=== PATIENT | female | born 1945 | race Caucasian/White ===

== ENCOUNTER 2017-07-11 08:42 | Observation (INO) | payer OTHER, MEDICARE ==
[2017-07-11 08:51] VITALS: BMI 32.6
[2017-07-11] MEDS ORDERED: ACETAMINOPHEN 1000 MG/100 ML VIAL (NON FORMULARY) IVPB ONE (09:36)
[2017-07-11] MEDS ORDERED: SODIUM CHLORIDE 0.9% 1000 ML INFUS.BAG IV ONE (09:36)
--- NOTE | 2017-07-11 09:36 | PDOC ---
History of Present Illness - General Chief Complaint: Pain, Acute Stated Complaint: PAIN Time Seen by Provider: 07/11/17 09:35 - History of Present Illness Initial Comments: 07/11/17 09:45 Ms. Herman is a 72 yo female w/ pmh of HTN, HLD, prolapsed uterus with hysterectomy, prior CVA with residual right hand numbness, and varicose veins with insufficiency who presents c/o a 1 day history of LLQ abdominal pain radiating to her back. She further endorses she has the urge to go more frequently /urgently currently and that she had a large bowel movement this morning (although stool was normal). The patient denies chest pain, shortness of breath, headache and dizziness. Denies fever, chills, nausea, vomit, diarrhea and constipation. Denies dysuria, and hematuria. Allergies: Penicillins, cirpofloxacin Past History - Past Medical History Allergies/Adverse Reactions: Allergies Allergy/AdvReac Type Severity Reaction Status Date / Time Penicillins Allergy Unknown Verified 07/11/17 08:47 ciprofloxacin [From Cipro] Allergy Rash Verified 07/11/17 08:47 ciprofloxacin HCl Allergy Rash Verified 07/11/17 08:47 [From Cipro] soy AdvReac diarrhea Verified 07/11/17 08:47 shrimp Allergy Difficulty Uncoded 07/11/17 08:47 Breathing Home Medications: Ambulatory Orders Amlodipine Besylate [Norvasc -] 5 mg PO DAILY 09/22/14 Aspirin [ASA -] 81 mg PO DAILY 09/22/14 Atorvastatin Ca [Lipitor] 10 mg PO HS 09/22/14 Cholecalciferol (Vitamin D3) [Vitamin D] 1,000 unit PO DAILY 09/22/14 Acetaminophen [Tylenol .Regular Strength -] 650 mg PO Q6H PRN #0 tablet CVA: Yes (11/2013 W/ RT SIDE WEAKNESS.) COPD: No DVT: No Dementia: No HTN: Yes - Surgical History Abdominal Surgery: Yes - Immunization History Immunization Up to Date: Yes - Suicide/Smoking/Psychosocial Hx Smoking Status: Yes Smoking History: Never smoked Have you smoked in the past 12 months: Yes Number of Cigarettes Smoked Daily: 0 If you are a former smoker, when did you quit?: 11/27/2013 Information on smoking cessation initiated: No 'Breaking Loose' booklet given: 11/27/13 Hx Alcohol Use: No Drug/Substance Use Hx: No Substance Use Type: None Hx Substance Use Treatment: No *Physical Exam - Vital Signs Last Vital Signs Temp Pulse Resp BP Pulse Ox 97.8 F 87 16 144/82 95 07/11/17 08:47 07/11/17 08:47 07/11/17 08:47 07/11/17 08:47 07/11/17 08:47 ED Treatment Course - LABORATORY CBC & Chemistry Diagram: 07/11/17 10:20 07/11/17 10:20 Medical Decision Making - Medical Decision Making 07/11/17 14:23 Ms. Herman is a 72 yo female w/ pmh as described who presents for evaluation of LLQ pain x1 day concerning for colitis vs. renal stone. 07/11/17 14:24 CT Abdomen/pelvis significant for diverticulosis coli mainly in sigmoid colon w / suggestion of chronic thickening of wall w/out gross evidence of acute diverticulitis. Also mild left renal hydronephrosis and hydroureter with layering of urinary bladder suggestive of recent passage of stone. 07/11/17 14:37 Discussed patient with inpatient team who will admit for further evaluation. Urology also contacted for inpatient evaluation for possible infected stone not visible on CT. *DC/Admit/Observation/Transfer Diagnosis at time of Disposition: Nephrolithiasis UTI (urinary tract infection) Qualifiers: Urinary tract infection type: site unspecified Hematuria presence: with hematuria Qualified Code(s): N39.0 - Urinary tract infection, site not specified - Discharge Dispostion Decision to Admit order: Yes - Referrals - Patient Instructions - Post Discharge Activity
[2017-07-11] MEDS ORDERED: ACETAMINOPHEN INJECTION 100 ML IVPB ONE (09:42)
[2017-07-11 10:34] LABS: BASO % 0.5 % (0-2.0); EOS % 0.2 % (0-4.5); HEMATOCRIT 41.7 % (32.4-45.2); HEMOGLOBIN 13.5 GM/dL (10.7-15.3); LYMPH % 10.1 % (8-40); MCH 25.6 pg (25.7-33.7); MCHC 32.3 g/dl (32.0-36.0); MEAN CELL VOLUME 79.1 fl (80-96); MEAN PLT VOLUME 8.5 fl (7.5-11.1); MONO % 3.2 % (3.8-10.2); PLATELET COUNT 289 K/MM3 (134-434); RBC 5.27 M/mm3 (3.60-5.2); RDW 17.1 % (11.6-15.6); WHITE BLOOD COUNT 10.3 K/mm3 (4.0-10.0)
[2017-07-11 10:37] LABS: URINE APPEARANCE SLCLOUDY; URINE BILIRUBIN NEGATIVE (<2.0 mg/dL); URINE COLOR LTYELLOW; URINE GLUCOSE (UA) NEGATIVE (NEGATIVE); URINE KETONE 1+ (NEGATIVE); URINE NITRITE NEGATIVE (NEGATIVE); URINE UROBILINOGEN NEGATIVE mg/dL (0.2-1.0)
[2017-07-11 10:44] LABS: URINE LEUK ESTERASE 2+ (NEGATIVE); URINE PROTEIN 1+ (NEGATIVE)
[2017-07-11 10:47] LABS: EPI CELLS RARE /HPF (FEW); URINE MUCUS RARE
[2017-07-11 10:59] LABS: ALBUMIN 3.9 g/dl (3.4-5.0); ALK PHOS 133 U/L (45-117); ANION GAP 10 (8-16); BILIRUBIN,TOTAL 0.5 mg/dL (0.2-1.0); BLOOD UREA NITROGEN 20 mg/dL (7-18); CHLORIDE 104 mmol/L (98-107); CO2 27 mmol/L (21-32); CREATININE 0.9 mg/dL (0.55-1.02); GLUCOSE,RANDOM 154 mg/dL (74-106); POTASSIUM 3.9 mmol/L (3.5-5.1); SGOT/AST 26 U/L (15-37); SGPT/ALT 29 U/L (12-78); SODIUM 141 mmol/L (136-145); TOT PROT 8.1 g/dl (6.4-8.2)
--- NOTE | 2017-07-11 11:29 | PDOC ---
Attending Attestation - HPI HPI: 07/11/17 11:30 The patient is a 72 year old female with a significant PMH of CVA (with residual right sided weakness), HTN, hyperlipidemia, prolapsed uterus (s/p hysterectomy), and varicose veins who presents to the emergency department with LLQ abdominal pain with radiation to the back beginning approximately 1 day ago. The patient also notes increased urinary urgency and frequency today. The patient denies fevers or chills. She denies nausea, vomiting, or diarrhea. She denies chest pain or shortness of breath. Allergies: Penicillins, Ciprofloxacin, Ciprofloxacin HCl. PCP: Dr. Mary Steinberg - Physicial Exam PE: 07/11/17 11:30 Vitals: Triage Vital signs reviewed General Appearance: no acute distress, well nourished well developed, Neck: Supple;No Nuchal rigidity Chest Wall: Nontender Cardiac: Regular rate and rhythm, no murmurs, no rubs, no gallops, Lungs: Clear to auscultation bilateral, good air movement bilaterally, Abdomen: (+) Left sided abdominal tenderness. Soft, nondistended, normal bowel sounds. Back: (+) Left flank tenderness. Extremities: Full range of motion to all extremities, no cyanosis, clubbing, or edema Skin: Warm and dry, no rashes or lesions, no petechiae Psych: normal mood, normal affect - Medical Decision Making 07/11/17 11:30 The patient is a 72 year old female with a significant PMH of CVA (with residual right sided weakness), HTN, hyperlipidemia, prolapsed uterus (s/p hysterectomy), and varicose veins who presents to the emergency department with LLQ abdominal pain with radiation to the back beginning approximately 1 day ago. The patient also notes increased urinary urgency and frequency today. The patient denies fevers or chills. She denies nausea, vomiting, or diarrhea. She denies chest pain or shortness of breath. Allergies: Penicillins, Ciprofloxacin, Ciprofloxacin HCl. PCP: Dr. Mary Steinberg <Scar Morrissey - Last Filed: 07/11/17 11:30> - Resident Resident Name: Joo Fierro - ED Attending Attestation I have performed the following: I have examined & evaluated the patient, The case was reviewed & discussed with the resident, I agree w/resident's findings & plan, Exceptions are as noted - Medical Decision Making Differential diagnosis includes Pyelo, renal colic, less likely aneurysm or dissection We'll check labs hydrate pain medication CT with IV contrast observe and reassess and dispel. 07/11/17 14:26 CT scan demonstrates hydro-hydroureter and possible recently passed stone. Given elevated white blood cell count and urinalysis with evidence of infection patient started on aztreonam given multiple ALLERGIES urology has been consult. We'll admit to medicine for further management. Urology consultation. Most likely diagnosis is UTI in the setting of a recent stone no acute surgical intervention necessary at this time given evidence of passed stone and no evidence of active obstructing stone on CAT scan however we'll have urology follow in case of nonvisualized stone on CT. <Rohan Villela - Last Filed: 07/11/17 14:28> Heart Score/ECG Review - ECG Impressions Comment:: 07/11/17 14:22 EKG performed at 12:30. EKG demonstrates sinus rhythm [address] elevations, T-wave inversions in lead 3. ID 182, QRS 80, QTC 469 <Rohan Villela - Last Filed: 07/11/17 14:28>
[2017-07-11] MEDS ORDERED: AZTREONAM 2 GM in DEXTROSE 5%-WATER 100 ML IVPB ONE (13:09)
--- NOTE | 2017-07-11 14:39 | HP ---
Admitting History and Physical - Primary Care Physician PCP: Mary Steinberg S - Admission Chief Complaint: L flank pain History of Present Illness: The patient is a 72 year old female with a significant PMH of CVA (with mild residual right sided weakness), HTN, hyperlipidemia, prolapsed uterus (s/p hysterectomy), and varicose veins who presents to the emergency department with LLQ abdominal pain with radiation to the back beginning approximately 1 day prior to presentation. The patient also notes increased urinary urgency and frequency today. The patient denies fevers or chills. She denies nausea, vomiting, or diarrhea. She denies chest pain or shortness of breath. Allergies: Penicillins, Ciprofloxacin, Ciprofloxacin HCl. 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 Cardiovascular: Yes: HTN, Hyperlipdemia Gastrointestinal: Yes: Other (rectal bleed) Renal/: Yes: UTI Musculoskeletal: Yes: Osteoarthritis Dermatology: Yes: Other (bug bites) - Smoking History Smoking history: Never smoked Have you smoked in the past 12 months: Yes Aproximately how many cigarettes per day: 0 If you are a former smoker, when did you quit?: 11/27/2013 - Alcohol/Substance Use Hx Alcohol Use: No History of Substance Use: reports: None - Social History Usual Living Arrangement: Yes: Other (with niece) ADL: Independent History of Recent Travel: Yes (to [place]) Home Medications - Allergies Allergies/Adverse Reactions: Allergies Allergy/AdvReac Type Severity Reaction Status Date / Time Penicillins Allergy Unknown Verified 07/11/17 08:47 ciprofloxacin [From Cipro] Allergy Rash Verified 07/11/17 08:47 ciprofloxacin HCl Allergy Rash Verified 07/11/17 08:47 [From Cipro] soy AdvReac diarrhea Verified 07/11/17 08:47 shrimp Allergy Difficulty Uncoded 07/11/17 08:47 Breathing - Home Medications Home Medications: Ambulatory Orders Amlodipine Besylate [Norvasc -] 5 mg PO DAILY 09/22/14 Aspirin [ASA -] 81 mg PO DAILY 09/22/14 Atorvastatin Ca [Lipitor] 10 mg PO HS 09/22/14 Cholecalciferol (Vitamin D3) [Vitamin D] 1,000 unit PO DAILY 09/22/14 Acetaminophen [Tylenol .Regular Strength -] 650 mg PO Q6H PRN #0 tablet Nitrofurantoin Macrocrystal [Macrodantin -] 50 mg PO Q6HPO #20 capsule 07/12/17 Family Disease History - Family Disease History Family History: Unremarkable Review of Systems - Review of Systems Constitutional: denies: Chills, Fever Eyes: denies: Blind Spots, Blurred Vision, Double Vision HENT: denies: Difficult Swallowing, Epistaxis Neck: denies: Stiffness, Tenderness Cardiovascular: denies: Chest Pain, Shortness of Breath Respiratory: denies: Cough, SOB Gastrointestinal: denies: Abdominal Pain, Diarrhea, Vomiting Genitourinary: reports: Dysuria, Flank Pain, Frequency Musculoskeletal: denies: Back Pain, Joint Swelling Neurological: denies: Change in LOC, Change in Speech, Confusion, Dizziness Endocrine: denies: Excessive Sweating, Flushing Hematology/Lymphatic: denies: Easily Bruised, Excessive Bleeding Psychiatric: denies: Altered Sleep Pattern, Anxiety, Depression Physical Examination Vital Signs: Vital Signs Temperature 97.8 F 07/11/17 08:47 Pulse Rate 98 H 07/11/17 13:45 Respiratory Rate 22 07/11/17 13:45 Blood Pressure 153/86 07/11/17 13:45 O2 Sat by Pulse Oximetry (%) 98 07/11/17 13:45 Constitutional: Yes: No Distress, Calm Eyes: Yes: Conjunctiva Clear HENT: Yes: Atraumatic Neck: Yes: Supple Cardiovascular: Yes: Regular Rate and Rhythm Respiratory: Yes: CTA Bilaterally Gastrointestinal: Yes: Soft. No: Distention, Tenderness Renal/: No: CVA Tenderness - Left, CVA Tenderness - Right Musculoskeletal: No: Joint Stiffness, Joint Swelling Extremities: No: Cold, Cool, Cyanosis Edema: No Integumentary: No: Rash, Venous Stasis Changes Neurological: Yes: WNL, Alert, Oriented ...Motor Strength: WNL Psychiatric: Yes: WNL, Alert, Oriented. No: Agitated, Suicidal Ideation Labs: CBC, BMP 07/11/17 10:20 07/11/17 10:20 Imaging - Results Chest X-ray: Report Reviewed Cat Scan: Report Reviewed Other: Report Reviewed Assessment/Plan The patient is a 72 year old female with a significant PMH of CVA (with residual right sided weakness), HTN, hyperlipidemia, prolapsed uterus (s/p hysterectomy), and varicose veins who presents to the emergency department with LLQ abdominal pain with radiation to the back dysuria, noted to have UTI and mild L hydronephrosis Allergies: Penicillins, Ciprofloxacin, Ciprofloxacin HCl. place in OBS eval IVF IV ATB possible DC home in am if better, will need f/u with d.w pt and lizzie
[2017-07-11] MEDS ORDERED: ACETAMINOPHEN 325 MG TABLET (FP) PO PRN (15:04)
--- NOTE | 2017-07-11 15:39 | CON.GU ---
Consult - History of Present Illness History of Present Illness: 72 yo female admitted with LLQ pain/colic. NCCT shows recently passed 2 mm stone in bladder and mild left hydro. 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 Cardio/Vascular: Yes: HTN, Hyperlipdemia Gastrointestinal: Yes: Other (rectal bleed) Renal/: Yes: UTI Musculoskeletal: Yes: Osteoarthritis Dermatology: Yes: Other (bug bites) - Alcohol/Substance Use Hx Alcohol Use: No History of Substance Use: reports: None - Smoking History Smoking history: Never smoked Have you smoked in the past 12 months: Yes Aproximately how many cigarettes per day: 0 If you are a former smoker, when did you quit?: 11/27/2013 - Social History ADL: Independent History of Recent Travel: Yes (to [place]) Home Medications - Allergies Allergies/Adverse Reactions: Allergies Allergy/AdvReac Type Severity Reaction Status Date / Time Penicillins Allergy Unknown Verified 07/11/17 08:47 ciprofloxacin [From Cipro] Allergy Rash Verified 07/11/17 08:47 ciprofloxacin HCl Allergy Rash Verified 07/11/17 08:47 [From Cipro] soy AdvReac diarrhea Verified 07/11/17 08:47 shrimp Allergy Difficulty Uncoded 07/11/17 08:47 Breathing - Home Medications Home Medications: Ambulatory Orders Amlodipine Besylate [Norvasc -] 5 mg PO DAILY 09/22/14 Aspirin [ASA -] 81 mg PO DAILY 09/22/14 Atorvastatin Ca [Lipitor] 10 mg PO HS 09/22/14 Cholecalciferol (Vitamin D3) [Vitamin D] 1,000 unit PO DAILY 09/22/14 Acetaminophen [Tylenol .Regular Strength -] 650 mg PO Q6H PRN #0 tablet Review of Systems - Review of Systems Genitourinary: reports: Frequency Physical Exam- Vital Signs: Vital Signs Temperature 97.8 F 07/11/17 08:47 Pulse Rate 98 H 07/11/17 13:45 Respiratory Rate 22 07/11/17 13:45 Blood Pressure 153/86 07/11/17 13:45 O2 Sat by Pulse Oximetry (%) 98 07/11/17 15:17 Renal/: Yes: WNL Kidneys: Yes: WNL Labs: CBC, BMP 07/11/17 10:20 07/11/17 10:20 Imaging - Results Cat Scan: Image Reviewed Problem List - Problems (1) Nephrolithiasis Assessment/Plan: recently passed left ureteral stone. in light of elevated WBC agree with ibservation and antibiotics. May d/c home tomorrow if WBC normalizes and pain free Code(s): N20.0 - CALCULUS OF KIDNEY
--- NOTE | 2017-07-11 17:33 | EKG ---
Test Reason : Blood Pressure : / mmHG Vent. Rate : 095 BPM Atrial Rate : 095 BPM P-R Int : 182 ms QRS Dur : 080 ms QT Int : 374 ms P-R-T Axes : 010 -07 -02 degrees QTc Int : 469 ms NORMAL SINUS RHYTHM CANNOT RULE OUT ANTERIOR INFARCT , AGE UNDETERMINED ABNORMAL ECG WHEN COMPARED WITH ECG OF 07-NOV-2014 02:38, NONSPECIFIC T WAVE ABNORMALITY, WORSE IN ANTERIOR LEADS Confirmed by LAITH CREWS, KEMAR ([id number]) on 07/11/2017 5:32:47 PM Referred By: Confirmed By:KEMAR OZUNA MD
[2017-07-11] MEDS: amLODIPine BESYLATE 5 MG TABLET (FP) PO SCH (18:16)
[2017-07-11] MEDS: NITROFURANTOIN MACROCRYSTAL 50 MG CAPSULE (FP) PO SCH ×2 (18:16→23:59)
[2017-07-11] MEDS ORDERED: SULFAMETHOXAZOLE/TRIMETHOPRIM 800MG/160MG D.S. TABLET PO SCH (22:00)
[2017-07-11] MEDS ORDERED: ATORVASTATIN CA 10 MG TABLET (FP) PO SCH (22:00)
[2017-07-11] MEDS: HEPARIN NA (PORCINE) 5,000 UNITS/ML 1ML VIAL SQ SCH (22:11)
[2017-07-12] MEDS: NITROFURANTOIN MACROCRYSTAL 50 MG CAPSULE (FP) PO SCH ×2 (06:26→12:17)
[2017-07-12 07:21] LABS: EOS % 1.3 % (0-4.5); HEMATOCRIT 39.4 % (32.4-45.2); HEMOGLOBIN 12.9 GM/dL (10.7-15.3); MCH 25.6 pg (25.7-33.7); MCHC 32.8 g/dl (32.0-36.0); MEAN CELL VOLUME 78.1 fl (80-96); MEAN PLT VOLUME 8.1 fl (7.5-11.1); MONO % 8.2 % (3.8-10.2); NEUT % 70.5 % (42.8-82.8); PLATELET COUNT 281 K/MM3 (134-434); RBC 5.05 M/mm3 (3.60-5.2); RDW 16.8 % (11.6-15.6); WHITE BLOOD COUNT 7.1 K/mm3 (4.0-10.0)
[2017-07-12 08:10] LABS: ALBUMIN 3.6 g/dl (3.4-5.0); ANION GAP 8 (8-16); BILIRUBIN,TOTAL 0.7 mg/dL (0.2-1.0); BLOOD UREA NITROGEN 11 mg/dL (7-18); CALCIUM 8.5 mg/dL (8.5-10.1); CHLORIDE 106 mmol/L (98-107); CO2 26 mmol/L (21-32); CREATININE 0.7 mg/dL (0.55-1.02); GLUCOSE,RANDOM 104 mg/dL (74-106); POTASSIUM 3.8 mmol/L (3.5-5.1); SGOT/AST 24 U/L (15-37); SGPT/ALT 26 U/L (12-78); SODIUM 140 mmol/L (136-145); TOT PROT 7.5 g/dl (6.4-8.2)
[2017-07-12 08:11] LABS: ALK PHOS 121 U/L (45-117)
[2017-07-12 08:58] VITALS: BP 126/72; PULSE 98; TEMP 98.9
[2017-07-12] MEDS ORDERED: ASPIRIN 81 MG CHEWABLE TABLETS PO SCH (10:00)
[2017-07-12] MEDS ORDERED: CHOLECALCIFEROL (VITAMIN D3) 1,000 UNIT TABLET (FP) PO SCH (10:00)
[2017-07-12] MEDS: amLODIPine BESYLATE 5 MG TABLET (FP) PO SCH (10:13)
[2017-07-12] MEDS: HEPARIN NA (PORCINE) 5,000 UNITS/ML 1ML VIAL SQ SCH (10:13)
--- NOTE | 2017-07-12 11:03 | PN ---
Progress Note (short form) - Note Progress Note: feels better no more flank pain hasnt seen stone pass but didnt always strain urine Ucx prelim positive stable from [facility] Problem List - Problems (1) Nephrolithiasis Code(s): N20.0 - CALCULUS OF KIDNEY
--- NOTE | 2017-07-12 11:55 | DS ---
Physical Examination Vital Signs: Vital Signs Temperature 98.9 F 07/12/17 08:57 Pulse Rate 98 H 07/12/17 08:57 Respiratory Rate 20 07/12/17 08:57 Blood Pressure 126/72 07/12/17 08:57 O2 Sat by Pulse Oximetry (%) 97 07/12/17 07:00 Findings/Remarks: in bed VSS afebrile NAD no c/o no pain no dysuria, said she is also allergic to Sulfa (not noted in above allergies initially) so Bactrim (initially ordered yesterday) was changed yesterday to NTF (Bactrim not given to pt) no dysuria no c/o feels well wants to go home; f/u as advised script done Constitutional: Yes: No Distress, Calm Eyes: Yes: Conjunctiva Clear HENT: Yes: Atraumatic Neck: Yes: Supple Cardiovascular: Yes: Regular Rate and Rhythm Respiratory: Yes: CTA Bilaterally Gastrointestinal: Yes: Soft. No: Distention, Tenderness Renal/: No: CVA Tenderness - Left, CVA Tenderness - Right, Hematuria Musculoskeletal: No: Joint Stiffness, Joint Swelling Extremities: No: Cold, Cool, Cyanosis Edema: No Integumentary: No: Rash, Venous Stasis Changes Neurological: Yes: WNL, Alert, Oriented ...Motor Strength: WNL Psychiatric: Yes: WNL, Alert, Oriented. No: Agitated, Suicidal Ideation Labs: CBC, BMP 07/12/17 06:40 07/12/17 06:40 Discharge Summary Reason For Visit: UTI, CALCULUS KIDNEY Current Active Problems Nephrolithiasis (Acute) Urinary tract infection (Acute) Procedures: Principal: admitted with UTI and flank pain, seen by dr Viveros Other Procedures: IVF IV ATB, pain meds; no intervention needed at this point ;. improved with above. Hospital Course: DC home on po ATB, f/u with and PCP in 1-2 weeks; see DC instructions d/w pt. Condition: Improved - Instructions Diet, Activity, Other Instructions: f/u PCP and in 1-2 weeks RTER if recurrent c/o Referrals: Mary Steinberg [Primary Care Provider] - Mert Llamas MD., MD [Staff Physician] - Disposition: HOME - Home Medications Comprehensive Discharge Medication List: Ambulatory Orders Amlodipine Besylate [Norvasc -] 5 mg PO DAILY 09/22/14 Aspirin [ASA -] 81 mg PO DAILY 09/22/14 Atorvastatin Ca [Lipitor] 10 mg PO HS 09/22/14 Cholecalciferol (Vitamin D3) [Vitamin D] 1,000 unit PO DAILY 09/22/14 Acetaminophen [Tylenol .Regular Strength -] 650 mg PO Q6H PRN #0 tablet
[2017-07-12] MEDS ORDERED: PT OWN MED DRAWER 7, Y5N ONE (12:16)
== END 2017-07-12 15:30 | disposition home or self-care (01) ==
LOC: JER 08:42 → JERBED 14:40 → J6S 17:17
PROVIDERS: ADMIT Internal Medicine; ATTEND Internal Medicine
PROC: 3E03329 Introduction of Other Anti-infective into Peripheral Vein, Percutaneous Approach (ICD-10-PCS; principal; 2017-07-11)
PROC: 3E033NZ Introduction of Analgesics, Hypnotics, Sedatives into Peripheral Vein, Percutaneous Approach (ICD-10-PCS; 2017-07-11)
PROC: 3E0337Z Introduction of Electrolytic and Water Balance Substance into Peripheral Vein, Percutaneous Approach (ICD-10-PCS; 2017-07-11)
PROC: 3E013GC Introduction of Other Therapeutic Substance into Subcutaneous Tissue, Percutaneous Approach (ICD-10-PCS; 2017-07-11)
DX: N20.0 Calculus of kidney (principal); N39.0 Urinary tract infection, site not specified; I10 Essential (primary) hypertension; E78.5 Hyperlipidemia, unspecified; I69.398 Other sequelae of cerebral infarction; I86.8 Varicose veins of other specified sites; Z79.82 Long term (current) use of aspirin; Z90.710 Acquired absence of both cervix and uterus; Z88.0 Allergy status to penicillin; Z88.1 Allergy status to other antibiotic agents; Z91.013 Allergy to seafood
CPT/HCPCS: 36415; 74177-TC; 80053; 81003; 81015; 85025; 87086; 87186; 93005; 93010; 96365; 96372; 96375; 99285-25; G0378; J0131; J1644; J7030

== ENCOUNTER 2019-11-27 18:19 | Inpatient (IN) | payer OTHER, MEDICARE ==
[2019-11-27 18:35] VITALS: BMI 31.9
--- OUTSIDE RECORDS SUMMARY | 2019-11-27 18:53 | XMS ---
:1945 Author Organization [facility] Support Name Relationship Address Phone RE Unavailable Unavailable Unavailable SAUMYA HERNANDEZ [address] [facility] [phone] [address] [place] [address] Re-disclosure Warning The records that you are about to access may contain information from federally- assisted alcohol or drug abuse programs. If such information is present, then the following federally mandated warning applies: This information has been disclosed to you from records protected by federal confidentiality rules (42 CFR part 2). The federal rules prohibit you from making any further disclosure of this information unless further disclosure is expressly permitted by the written consent of the person to whom it pertains or as otherwise permitted by 42 CFR part 2. A general authorization for the release of medical or other information is NOT sufficient for this purpose. The Federal rules restrict any use of the information to criminally investigate or prosecute any alcohol or drug abuse patient.The records that you are about to access may contain highly sensitive health information, the redisclosure of which is protected by Article 27-F of the [facility] Public Health law. If you continue you may haveaccess to information: Regarding HIV / AIDS; Provided by facilities licensed or operated by the [facility] Office of Mental Health; or Provided by the [facility] Office for People With Developmental Disabilities. If such information is present, then the following [facility] mandated warning applies: This information has been disclosed to you from confidential records which are protected by state law. State law prohibits you from making any further disclosure of this information without the specific written consent of the person to whom it pertains, or as otherwise permitted by law. Any unauthorized further disclosure in violation of state law may result in a fine or longterm sentence or both. A general authorization for the release of medical or other information is NOT sufficient authorization for further disclosure. Insurance Providers Payer name Policy type Policy ID Covered Covered green party's Policy P svitlana / Coverage green party ID relationship to [place] [facility] type herron [facility] [id number] [employer] MED[employer] [id number]
[2019-11-27] MEDS ORDERED: ONDANSETRON 4 MG/2 ML VIAL IVPUSH ONE (19:46)
[2019-11-27] MEDS ORDERED: KETOROLAC TROMETHAMINE 15 MG/ML VIAL IVPUSH ONE (19:46)
--- NOTE | 2019-11-27 19:48 | PDOC ---
Documentation entered by Jeremias Colmenares SCRIBE, acting as scribe for Bronwyn Urbano MD. Bronwyn Urbano MD: This documentation has been prepared by the scribe, Jeremias Phillips SCRIBE, under my direction and personally reviewed by me in its entirety. I confirm that the documentation accurately reflects all work, treatment, procedures, and medical decision making performed by me. Attending Attestation - Resident Resident Name: AllankushAnila - ED Attending Attestation I have performed the following: I have examined & evaluated the patient, The case was reviewed & discussed with the resident, I agree w/resident's findings & plan, Exceptions are as noted - HPI HPI: 11/27/19 19:45 This 74 yo female has a history of kidney stones and sees Dr Fay,her urologist for these problems - Physicial Exam PE: 11/27/19 19:39 GENERAL: Well developed, well nourished. Awake and alert. No acute distress. HEENT: Normocephalic, atraumatic. PERRLA, EOMI. No conjunctival pallor. Sclera are non- icteric. Moist mucous membranes. Oropharynx is clear. NECK: Supple. Full ROM. No JVD. Carotid pulses 2+ and symmetric, without bruits. No thyromegaly. No lymphadenopathy. CARDIOVASCULAR: Regular rate and rhythm. No murmurs, rubs, or gallops. Distal pulses are 2+ and symmetric. PULMONARY: No evidence of respiratory distress. Lungs clear to auscultation bilaterally. No wheezing, rales or rhonchi. ABDOMINAL: Soft. Non-tender. Non-distended. No rebound or guarding. No organomegaly. Normoactive bowel sounds. MUSCULOSKELETAL: Normal range of motion at all joints. No bony deformities or tenderness. Left CVA tenderness. EXTREMITIES: No cyanosis. No clubbing. No edema. No calf tenderness. SKIN: Warm and dry. Normal capillary refill. No rashes. No jaundice. NEUROLOGICAL: Alert, awake, appropriate. No gross focal neuro deficits PSYCHIATRIC: Cooperative. Good eye contact. Appropriate mood and affect. 11/27/19 19:46 - Medical Decision Making 11/28/19 00:25 ct scan shows an 5.3 mm obstructing renal stone with hydronephrosis pt will be admitted /urology consult Discharge - Discharge Information Problems reviewed: Yes Clinical Impression/Diagnosis: Urinary tract infection, Nephrolithiasis Condition: Stable - Follow up/Referral - Patient Discharge Instructions - Post Discharge Activity
--- NOTE | 2019-11-27 19:50 | PDOC ---
History of Present Illness - General Chief Complaint: Pain Stated Complaint: ABDOMINAL PAIN Time Seen by Provider: 11/27/19 19:38 Past History - Medical History Allergies/Adverse Reactions: Allergies Allergy/AdvReac Type Severity Reaction Status Date / Time Penicillins Allergy Unknown Verified 11/27/19 18:35 ciprofloxacin [From Cipro] Allergy Rash Verified 11/27/19 18:35 ciprofloxacin HCl Allergy Rash Verified 11/27/19 18:35 [From Cipro] lettuce Allergy Verified 11/27/19 19:46 soy AdvReac diarrhea Verified 11/27/19 18:35 shrimp Allergy Difficulty Uncoded 11/27/19 18:35 Breathing Home Medications: Ambulatory Orders Amlodipine Besylate [Norvasc -] 5 mg PO DAILY 09/22/14 Aspirin [ASA -] 81 mg PO DAILY 09/22/14 Atorvastatin Ca [Lipitor] 10 mg PO HS 09/22/14 Cholecalciferol (Vitamin D3) [Vitamin D] 1,000 unit PO DAILY 09/22/14 CVA: Yes (11/2013 W/ RT SIDE numbness) COPD: No DVT: No Dementia: No GI Disorders: Yes (rectal bleed) Disorders: Yes (kidney stones) HTN: Yes - Surgical History Abdominal Surgery: Yes - Reproductive History Is Patient Now?: No - Immunization History Immunization Up to Date: Yes - Psycho-Social/Smoking History Smoking Status: Yes Smoking History: Unknown if ever smoked Have you smoked in the past 12 months: Yes Number of Cigarettes Smoked Daily: 0 If you are a former smoker, when did you quit?: 11/27/2013 'Breaking Loose' booklet given: 11/27/13 - Substance Abuse Hx (Audit-C & DAST Scrn) How often the patient has a drink containing alcohol: Never Score: In Men: 4 or > Positive; In Women: 3 or > Positive: 0 Screen Result (Pos requires Nsg. Audit-10AR): Negative In the last yr the pt used illegal drug/Rx for NonMed reason: No Score: Yes response is considered Positive: 0 Screen Result (Positive result requires Nsg. 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 Different from prior kidney stones was at 1500 her first sx was a brief episode of diaphoresis, generalized weakness, 1x NBNB diarrhea, and feeling like she was going to pass out, all resolved but never felt like that before. Pt was in [facility] prior to 1500, ate lunch around noon. Denies pain meds, F/C, travel, sick contacts, covid, vomiting, headache, dizziness, CP, SOB, cough, palpitations, syncope, seizure, leg swelling, calf pain, blood in stool, dysuria, hematuria, urinary urgency/freqency, vaginal discharge or sx, N/T, weakness. LLQ/L flank TTP, no CVA tenderness -CBC,CMP,Cardiac profile -EKG -CXR -CTAP w/contrast -IVF -Toradol, Zofran - 11/27/19 23:22 WBC 11.6, UA notable for blood and possible UTI 11/28/19 00:15 CTAP reviewed: Positive for a 5.3 mm obstructing proximal left ureteral stone. This causes moderate left hydronephrosis, perinephric stranding and delayed excretion of contrast. There are are also nonobstructing left renal stones. No right renal stone. Right renal cyst. No right urinary tract obstruction. CXR reviewed: cardiomegaly, congestion, no obvious infiltrate or effusion -Urology consult placed, call deferred to admitting team -1g ceftriaxone (discussed hx rash and diarrhea 2/2 PXN; will monitor for reactions) -Admit Dr Mary Steinberg - call placed to office Discharge - Discharge Information Problems reviewed: Yes Clinical Impression/Diagnosis: Urinary tract infection, Nephrolithiasis Condition: Stable - Admission Yes - Follow up/Referral Referrals: Mary Steinberg [Primary Care Provider] - - Patient Discharge Instructions - Post Discharge Activity
[2019-11-27] MEDS ORDERED: KETOROLAC TROMETHAMINE 15 MG/ML VIAL ONE (19:52)
[2019-11-27] MEDS ORDERED: SODIUM CHLORIDE 0.9% 500 ML INFUS.BAG IV ONE (20:00)
[2019-11-27 20:11] LABS: EPI CELLS 4 /uL (0-25.1); HYALINE CASTS 1 /uL (0-3.1); URINE APPEARANCE CLEAR; URINE BACTERIA 155 /uL (0-1359); URINE BILIRUBIN NEGATIVE (NEGATIVE); URINE COLOR YELLOW; URINE GLUCOSE (UA) TRACE (NEGATIVE); URINE KETONE TRACE (NEGATIVE); URINE LEUK ESTERASE 1+ (NEGATIVE); URINE NITRITE NEGATIVE (NEGATIVE); URINE PROTEIN TRACE (NEGATIVE); URINE UROBILINOGEN 0.2 mg/dL (0.2-1.0); URINE WBC 139 /uL (0-25.8)
[2019-11-27 20:14] LABS: BASO % 0.5 % (0-2.0); EOS % 0.1 % (0-4.5); HEMATOCRIT 37.9 % (32.4-45.2); HEMOGLOBIN 12.2 GM/dL (10.7-15.3); LYMPH % 5.2 % (8-40); MCH 25.2 pg (25.7-33.7); MCHC 32.3 g/dl (32.0-36.0); MEAN PLT VOLUME 8.1 fl (7.5-11.1); MONO % 3.3 % (3.8-10.2); NEUT % 90.9 % (42.8-82.8); PLATELET COUNT 326 K/MM3 (134-434); RBC 4.85 M/mm3 (3.60-5.2); RDW 17.1 % (11.6-15.6); WHITE BLOOD COUNT 11.6 K/mm3 (4.0-10.0)
[2019-11-27 20:34] LABS: URINE RBC 105.5 /uL (0-23.9)
[2019-11-27 20:34] LABS: ALBUMIN 3.6 g/dl (3.4-5.0); ALK PHOS 133 U/L (45-117); ANION GAP 7 MMOL/L (8-16); BILIRUBIN,TOTAL 0.4 mg/dL (0.2-1); BLOOD UREA NITROGEN 21.8 mg/dL (7-18); CHLORIDE 106 mmol/L (98-107); CO2 25 mmol/L (21-32); GLUCOSE,RANDOM 177 mg/dL (74-106); POTASSIUM 3.8 mmol/L (3.5-5.1); SGOT/AST 23 U/L (15-37); SGPT/ALT 23 U/L (13-61); SODIUM 138 mmol/L (136-145); TOT PROT 7.8 g/dl (6.4-8.2)
[2019-11-28] MEDS ORDERED: CEFTRIAXONE 1 GM in DEXTROSE 5%-WATER - 100 ML IVPB ONE (00:23)
[2019-11-28] MEDS ORDERED: CEFTRIAXONE 1 GM/50 ML BAG ONE ×2 (00:34→09:04)
--- OUTSIDE RECORDS SUMMARY | 2019-11-28 03:32 | XMS ---
:1945 Author Organization [facility] Support Name Relationship Address Phone RE, RETIRED Unavailable Unavailable Unavailable RE Unavailable Unavailable Unavailable SAUMYA HERNANDEZ NIECE [address] [facility] [place] [address] Re-disclosure Warning The records that you are [...] is protected by Article 27-F of the [facility] Public Health law. If you continue you may haveaccess to information: Regarding HIV / AIDS; Provided by facilities licensed or operated by the [facility] Office of Mental Health; or Provided by the [facility] Office for People With Developmental Disabilities. If such information is present, then the following [facility] mandated warning applies: This information has been [...] law may result in a fine or senior care sentence or both. A general authorization for the release of medical or other information is NOT sufficient authorization for further disclosure. Insurance Providers Payer name Policy type Policy ID Covered Covered green party's Policy P svitlana / Coverage green party ID relationship to [facility] type herron [facility] [id number] C[employer] MEDICARE [id number]
--- NOTE | 2019-11-28 06:46 | HP ---
Admitting History and Physical - Primary Care Physician PCP: Mary Steinberg S - Admission Chief Complaint: L Flank pain History of Present Illness: 74yo F hx kidney stones , mild CVA / TIA 7 years ago (with minimal residual right sided weakness), HTN, hyperlipidemia, prolapsed uterus (s/p hysterectomy and b/l oophorectomy), and varicose veins presents from home c/o acute onset constant L flank pain radiating to LLQ with associated nausea without vomiting yesterday, similar to prior kidney stones. Denies travel, sick contacts, covid, headache, dizziness, CP, SOB, cough, palpitations, syncope, seizure, leg swelling, calf pain, blood in stool, dysuria, hematuria, yes urinary urgency/freqency, no vaginal discharge, no weakness. 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 Cardiovascular: Yes: HTN, Hyperlipdemia Gastrointestinal: Yes: Other (rectal bleed) Renal/: Yes: UTI ...: No Musculoskeletal: Yes: Osteoarthritis Dermatology: Yes: Other (bug bites) - Smoking History Smoking history: Unknown if ever smoked Have you smoked in the past 12 months: Yes Aproximately how many cigarettes per day: 0 If you are a former smoker, when did you quit?: 11/27/2013 - Alcohol/Substance Use Hx Alcohol Use: No History of Substance Use: reports: None - Social History Usual Living Arrangement: Yes: With Spouse Do you think of yourself as: Straight/Heterosexual ADL: Independent History of Recent Travel: Yes (to [place]) Home Medications - Allergies Allergies/Adverse Reactions: Allergies Allergy/AdvReac Type Severity Reaction Status Date / Time Penicillins Allergy Unknown Verified 11/27/19 18:35 ciprofloxacin [From Cipro] Allergy Rash Verified 11/27/19 18:35 ciprofloxacin HCl Allergy Rash Verified 11/27/19 18:35 [From Cipro] lettuce Allergy Verified 11/27/19 19:46 soy AdvReac diarrhea Verified 11/27/19 18:35 shrimp Allergy Difficulty Uncoded 11/27/19 18:35 Breathing - Home Medications Home Medications: Ambulatory Orders Amlodipine Besylate [Norvasc -] 5 mg PO DAILY 09/22/14 Aspirin [ASA -] 81 mg PO DAILY 09/22/14 Atorvastatin Ca [Lipitor] 10 mg PO HS 09/22/14 Cholecalciferol (Vitamin D3) [Vitamin D] 1,000 unit PO DAILY 09/22/14 Family Medical History Family History: Unremarkable Review of Systems - Review of Systems Constitutional: denies: Chills, Fever, Lethargy Eyes: denies: Blurred Vision, Double Vision HENT: denies: Difficult Swallowing, Ear Pain Neck: denies: Decreased ROM, Pain on Movement, Tenderness Cardiovascular: denies: Chest Pain, Palpitations Respiratory: denies: Cough, SOB, SOB on Exertion Gastrointestinal: reports: Vomiting (x1). denies: Abdominal Pain, Constipation, Diarrhea Genitourinary: reports: Dysuria, Flank Pain (L) Musculoskeletal: denies: Back Pain Integumentary: denies: Blister, Bruising, Eczema, Pruritis, Rash Neurological: denies: Change in LOC, Change in Speech, Confusion, Seizure, Syncope Endocrine: denies: Unexplained Weight Gain, Unexplained Weight Loss Hematology/Lymphatic: denies: Easily Bruised, Excessive Bleeding Psychiatric: denies: Altered Sleep Pattern, Anxiety, Depression, Suicidal Physical Examination Vital Signs: Vital Signs Temperature 98.8 F 11/28/19 05:58 Pulse Rate 110 H 11/28/19 05:58 Respiratory Rate 18 11/28/19 05:58 Blood Pressure 169/90 11/28/19 05:58 O2 Sat by Pulse Oximetry (%) 96 11/28/19 05:58 Constitutional: Yes: No Distress, Calm Eyes: Yes: Conjunctiva Clear HENT: Yes: Atraumatic Neck: Yes: Supple Cardiovascular: Yes: Regular Rate and Rhythm Respiratory: Yes: CTA Bilaterally Gastrointestinal: Yes: Soft. No: Tenderness Renal/: Yes: CVA Tenderness - Left. No: Hematuria Musculoskeletal: No: Joint Stiffness, Joint Swelling Extremities: No: Cold, Cool, Cyanosis Edema: No Integumentary: No: Rash, Venous Stasis Changes Neurological: Yes: Alert, Oriented ...Motor Strength: WNL Psychiatric: Yes: Alert, Oriented. No: Agitated, Suicidal Ideation Labs: CBC, BMP 11/27/19 20:05 11/27/19 20:05 Imaging - Results Chest X-ray: Report Reviewed Cat Scan: Report Reviewed Other: Report Reviewed Assessment/Plan 74yo F hx kidney stones, CVA /TIA 7 years ago (with minimal residual right sided weakness), HTN, hyperlipidemia, prolapsed uterus (s/p hysterectomy and b/l oophorectomy), and varicose veins presents from home c/o acute onset constant L flank pain radiating to LLQ with associated nausea and dysuria; abdomen CT c/w L obstructing renal stone. IVF; IV ATB eval pain meds prn d.w pt and staff d/w
[2019-11-28] MEDS ORDERED: ACETAMINOPHEN 325 MG TABLET (FP) PO PRN (06:51)
[2019-11-28] MEDS ORDERED: SODIUM CHLORIDE 1,000 ML IV SCH (07:00)
[2019-11-28] MEDS ORDERED: HEPARIN NA (PORCINE) 5,000 UNITS/ML 1ML VIAL ONE (09:03)
[2019-11-28] MEDS ORDERED: amLODIPine BESYLATE 5 MG TABLET (FP) ONE (09:03)
[2019-11-28] MEDS ORDERED: ASPIRIN 81 MG CHEWABLE TABLETS ONE (09:03)
[2019-11-28] MEDS ORDERED: PT OWN MED DRAWER 7, Y5N ONE (09:21)
[2019-11-28] MEDS: HEPARIN NA (PORCINE) 5,000 UNITS/ML 1ML VIAL SQ SCH ×2 (09:22→21:27)
[2019-11-28] MEDS: ASPIRIN 81 MG CHEWABLE TABLETS PO SCH (09:22)
[2019-11-28] MEDS: amLODIPine BESYLATE 5 MG TABLET (FP) PO SCH (09:23)
[2019-11-28] MEDS: CEFTRIAXONE 1 GM in DEXTROSE 5%-WATER - 50 ML IVPB SCH (09:23)
[2019-11-28] MEDS: CHOLECALCIFEROL (VIT D3) 1,000 UNIT (25 MCG) TABLET PO SCH (09:39)
[2019-11-28] MEDS ORDERED: CHOLECALCIFEROL U PO SCH (10:00)
[2019-11-28] MEDS ORDERED: [UNRECOGNIZED DRUG - OTHER] PO SCH (10:00)
--- NOTE | 2019-11-28 11:48 | EKG ---
Test Reason : Blood Pressure : / mmHG Vent. Rate : 094 BPM Atrial Rate : 094 BPM P-R Int : 198 ms QRS Dur : 082 ms QT Int : 358 ms P-R-T Axes : 018 -09 -01 degrees QTc Int : 447 ms NORMAL SINUS RHYTHM MINIMAL VOLTAGE CRITERIA FOR LVH, MAY BE NORMAL VARIANT BORDERLINE ECG WHEN COMPARED WITH ECG OF 11-JUL-2017 12:40, T WAVE VARIATION Confirmed by ELLIOT CREWS, YANELI ([id number]) on 11/28/2019 11:47:56 AM Referred By: Confirmed By:YANELI ZARATE MD
[2019-11-28] MEDS ORDERED: MORPHINE SULFATE 2 MG/ML VIAL IVPUSH PRN (11:49)
--- NOTE | 2019-11-28 17:05 | CON.GU ---
Consult - History of Present Illness History of Present Illness: 74 yo female with h/o nephrolithiasis now with acute onset of left renal colic, N/V. CT shows 8mm left prox ureteral stone with hydronephrosis. Also of note is a 1.6cm LLP stone. 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 Cardio/Vascular: Yes: HTN, Hyperlipdemia Gastrointestinal: Yes: Other (rectal bleed) Renal/: Yes: UTI ...: No Musculoskeletal: Yes: Osteoarthritis Dermatology: Yes: Other (bug bites) - Alcohol/Substance Use Hx Alcohol Use: No History of Substance Use: reports: None - Smoking History Smoking history: Unknown if ever smoked Have you smoked in the past 12 months: Yes Aproximately how many cigarettes per day: 0 If you are a former smoker, when did you quit?: 11/27/2013 - Social History ADL: Independent History of Recent Travel: Yes (to [place]) Home Medications - Allergies Allergies/Adverse Reactions: Allergies Allergy/AdvReac Type Severity Reaction Status Date / Time Penicillins Allergy Unknown Verified 11/27/19 18:35 ciprofloxacin [From Cipro] Allergy Rash Verified 11/27/19 18:35 ciprofloxacin HCl Allergy Rash Verified 11/27/19 18:35 [From Cipro] lettuce Allergy Verified 11/27/19 19:46 soy AdvReac diarrhea Verified 11/27/19 18:35 shrimp Allergy Difficulty Uncoded 11/27/19 18:35 Breathing - Home Medications Home Medications: Ambulatory Orders Amlodipine Besylate [Norvasc -] 5 mg PO DAILY 09/22/14 Aspirin [ASA -] 81 mg PO DAILY 09/22/14 Atorvastatin Ca [Lipitor] 10 mg PO HS 09/22/14 Cholecalciferol (Vitamin D3) [Vitamin D] 1,000 unit PO DAILY 09/22/14 Family Medical History Family History: Unremarkable Review of Systems - Review of Systems Genitourinary: reports: Flank Pain Physical Exam- Vital Signs: Vital Signs Temperature 98.8 F 11/28/19 05:58 Pulse Rate 105 H 11/28/19 14:00 Respiratory Rate 18 11/28/19 14:00 Blood Pressure 149/80 11/28/19 14:00 O2 Sat by Pulse Oximetry (%) 96 11/28/19 14:00 Kidneys: Yes: Flank Pain Left Labs: CBC, BMP 11/27/19 20:05 11/27/19 20:05 Imaging - Results Cat Scan: Image Reviewed Problem List - Problems (1) Left ureteral calculus Assessment/Plan: in light of elev WBC, tachycardia, will plan for emergent cysto/left stent placement Code(s): N20.1 - CALCULUS OF URETER
[2019-11-28] MEDS ORDERED: PROPOFOL 20 ML ONE ×2 (17:32)
[2019-11-28] MEDS ORDERED: MIDAZOLAM HCL 2 MG/2 ML SINGLE DOSE VIAL ONE (17:32)
[2019-11-28] MEDS ORDERED: ROCURONIUM BROMIDE 50 MG/5 ML SYRINGE ONE (17:32)
[2019-11-28] MEDS ORDERED: GENTAMICIN 80MG PREMIX BAG IVPB ONE (18:04)
--- NOTE | 2019-11-28 18:26 | OP ---
Operative Note - Note: Operative Date: 11/28/19 Pre-Operative Diagnosis: LPU stone Operation: cysto/left stent Post-Operative Diagnosis: Same as Pre-op Anesthesia: General Operative Report Dictated: Yes
[2019-11-28] MEDS ORDERED: ONDANSETRON 4 MG/2 ML VIAL IVPUSH PRN (18:39)
--- NOTE | 2019-11-28 19:04 | OP ---
DATE OF OPERATION: 11/28/2019 PREOPERATIVE DIAGNOSIS: Obstructing left proximal ureteral stone. POSTOPERATIVE DIAGNOSIS: Obstructing left proximal ureteral stone. PROCEDURE: Cystoscopy, left ureteral stent placement, retrograde pyelogram. SURGEON: Ericka Rodas M.D. INDICATION: Patient is a 74-year-old female with recurrent nephrolithiasis, now admitted with left flank pain, tachycardia, elevated white blood cell count, CT with 8-mm obstructing stone shown in the proximal ureter. She is taken to the OR originally for cystoscopy and stent placement. DESCRIPTION OF PROCEDURE: The patient was taken to the OR and placed supine on the operating table. Cardiac monitoring administered. General anesthesia established, she was prepped and draped in the dorsal lithotomy position. The rigid cystoscope was inserted into the urethra without difficulty. The bladder was visualized. There were no tumors or stones noted in the bladder. Attention was turned to the left ureteral orifice, this was intubated with ureteral catheter. Contrast injected for retrograde pyelogram, there was hydronephrosis to proximal left ureter where stone was seen. Guidewire advanced beyond the stones and over the guidewire a 7-Qatari 24-cm double pigtail stent was then advanced in a monorail fashion. Fluoroscopy confirmed stent to be in good position. Patient then awoken from anesthesia and transferred to the recovery room in stable condition. There were no complications. Estimated blood loss was zero. ERICKA RODAS M.D. [id number]
[2019-11-28] MEDS: LACTATED RINGERS SOLUTION 1,000 ML IV SCH (20:12)
[2019-11-28] MEDS: ATORVASTATIN CA 10 MG TABLET (FP) PO SCH (21:27)
--- NOTE | 2019-11-29 08:20 | PN ---
Progress Note, Physician Chief Complaint: s.p ureteral stent, had some hematuria and some pain earlier but feels better now - Current Medication List Current Medications: Active Medications Acetaminophen (Tylenol -) 650 mg PO Q6H PRN PRN Reason: PAIN 1-5 Amlodipine Besylate (Norvasc -) 5 mg PO DAILY [facility] [place] Last Admin: 11/28/19 09:23 Dose: 5 mg Documented by: Aspirin (Asa -) 81 mg PO DAILY [facility] Last Admin: 11/28/19 09:22 Dose: 81 mg Documented by: Atorvastatin Calcium (Lipitor -) 10 mg PO HS [facility] [place] Last Admin: 11/28/19 21:27 Dose: 10 mg Documented by: Cholecalciferol (Vitamin D3 -) 1,000 unit PO DAILY [facility] Last Admin: 11/28/19 09:39 Dose: 1,000 unit Documented by: Fentanyl (Sublimaze Injection -) 25 mcg IVPUSH [id number] PRN PRN Reason: PAIN-PACU ORDER X 4 DOSES ONLY Heparin Sodium (Porcine) (Heparin -) 5,000 unit SQ BID [facility] Last Admin: 11/28/19 21:27 Dose: 5,000 unit Documented by: Ceftriaxone Sodium 1 gm/ (Dextrose) 50 mls @ 100 mls/hr IVPB DAILY [facility] [place] Last Admin: 11/28/19 09:23 Dose: 100 mls/hr Documented by: Lactated Ringer's (Lactated Ringers Solution) 1,000 mls @ 125 mls/hr IV ASDIR [facility] [place] Last Admin: 11/28/19 20:12 Dose: Not Given Documented by: Morphine Sulfate (Morphine Sulfate) 1 mg IVPUSH Q6H PRN PRN Reason: PAIN LEVEL 7 - 10 Ondansetron HCl (Zofran Injection) 4 mg IVPUSH Q6H PRN PRN Reason: NAUSEA AND/OR VOMITING - Objective Vital Signs: Vital Signs Temperature 98.6 F 11/29/19 06:00 Pulse Rate 89 11/29/19 06:00 Respiratory Rate 20 11/29/19 06:00 Blood Pressure 144/75 11/29/19 06:00 O2 Sat by Pulse Oximetry (%) 97 11/29/19 06:00 Constitutional: Yes: No Distress Eyes: Yes: Conjunctiva Clear HENT: Yes: Atraumatic Neck: Yes: Supple Cardiovascular: Yes: Regular Rate and Rhythm Respiratory: Yes: CTA Bilaterally Gastrointestinal: Yes: Soft. No: Tenderness Genitourinary: No: CVA Tenderness - Left, CVA Tenderness - Right, Flores Present, Hematuria Musculoskeletal: No: Joint Stiffness, Joint Swelling Extremities: No: Cold, Cool Edema: No Integumentary: No: Rash, Venous Stasis Changes Neurological: Yes: Alert, Oriented ...Motor Strength: WNL Psychiatric: Yes: Alert, Oriented. No: Agitated, Suicidal Ideation Labs: CBC, BMP 11/27/19 20:05 11/27/19 20:05 - ....Imaging Other: Report Reviewed Assessment/Plan 74yo F hx kidney stones, CVA /TIA 7 years ago (with minimal residual right sided weakness), HTN, hyperlipidemia, prolapsed uterus (s/p hysterectomy and b/l oophorectomy), and varicose veins admitted with L obstructing renal stone. IVF; IV ATB f/u s.p ureteral stent pain meds prn d.w pt and staff
[2019-11-29 08:52] LABS: BASO % 1.2 % (0-2.0); EOS % 1.4 % (0-4.5); HEMATOCRIT 37.4 % (32.4-45.2); HEMOGLOBIN 12.2 GM/dL (10.7-15.3); LYMPH % 17.2 % (8-40); MCH 25.5 pg (25.7-33.7); MCHC 32.5 g/dl (32.0-36.0); MEAN CELL VOLUME 78.4 fl (80-96); MONO % 9.8 % (3.8-10.2); NEUT % 70.4 % (42.8-82.8); PLATELET COUNT 292 K/MM3 (134-434); RBC 4.77 M/mm3 (3.60-5.2); WHITE BLOOD COUNT 7.4 K/mm3 (4.0-10.0)
[2019-11-29] MEDS ORDERED: cefTRIAXone SODIUM 1 GM VIAL ONE (09:15)
[2019-11-29] MEDS ORDERED: DEXTROSE 5%-WATER - 50 ML IVPB ONE (09:15)
[2019-11-29] MEDS: ASPIRIN 81 MG CHEWABLE TABLETS PO SCH (09:18)
[2019-11-29] MEDS: HEPARIN NA (PORCINE) 5,000 UNITS/ML 1ML VIAL SQ SCH ×2 (09:18→21:57)
[2019-11-29] MEDS: amLODIPine BESYLATE 5 MG TABLET (FP) PO SCH (09:18)
[2019-11-29] MEDS: CHOLECALCIFEROL (VIT D3) 1,000 UNIT (25 MCG) TABLET PO SCH (09:18)
[2019-11-29] MEDS: CEFTRIAXONE 1 GM in DEXTROSE 5%-WATER - 50 ML IVPB SCH (09:19)
[2019-11-29 09:27] LABS: ALBUMIN 3.1 g/dl (3.4-5.0); BLOOD UREA NITROGEN 14.5 mg/dL (7-18); CALCIUM 8.6 mg/dL (8.5-10.1); CREATININE 0.8 mg/dL (0.55-1.3); POTASSIUM 3.4 mmol/L (3.5-5.1)
[2019-11-29 09:29] LABS: BILIRUBIN,TOTAL 0.7 mg/dL (0.2-1); TOT PROT 6.8 g/dl (6.4-8.2)
[2019-11-29] MEDS: LACTATED RINGERS SOLUTION 1,000 ML IV SCH ×2 (17:00→21:57)
[2019-11-29] MEDS ORDERED: POTASSIUM CHLORIDE TABS 10 MEQ TABLET.ER (FP) PO ONE (20:52)
[2019-11-29] MEDS: ATORVASTATIN CA 10 MG TABLET (FP) PO SCH (21:57)
[2019-11-30] MEDS: LACTATED RINGERS SOLUTION 1,000 ML IV SCH ×2 (02:58→21:48)
[2019-11-30 08:40] LABS: CALCIUM 8.8 mg/dL (8.5-10.1)
[2019-11-30 08:41] LABS: CREATININE 0.7 mg/dL (0.55-1.3)
[2019-11-30] MEDS ORDERED: DEXTROSE 5%-WATER - 50 ML IVPB ONE (10:09)
[2019-11-30] MEDS ORDERED: cefTRIAXone SODIUM 1 GM VIAL ONE (10:09)
[2019-11-30] MEDS: amLODIPine BESYLATE 5 MG TABLET (FP) PO SCH (10:30)
[2019-11-30] MEDS: CHOLECALCIFEROL (VIT D3) 1,000 UNIT (25 MCG) TABLET PO SCH (10:30)
[2019-11-30] MEDS: ASPIRIN 81 MG CHEWABLE TABLETS PO SCH (10:30)
[2019-11-30] MEDS: CEFTRIAXONE 1 GM in DEXTROSE 5%-WATER - 50 ML IVPB SCH (10:30)
[2019-11-30] MEDS: HEPARIN NA (PORCINE) 5,000 UNITS/ML 1ML VIAL SQ SCH ×2 (10:31→21:47)
--- NOTE | 2019-11-30 20:02 | PN ---
Progress Note, Physician Chief Complaint: feels better no hematuria but is sore "all over" and has occasional flank pain no NV afebrile - Current Medication List Current Medications: Active Medications Acetaminophen (Tylenol -) 650 mg PO Q6H PRN PRN Reason: PAIN 1-5 Amlodipine Besylate (Norvasc -) 5 mg PO DAILY [facility] Last Admin: 11/30/19 10:30 Dose: 5 mg Documented by: Aspirin (Asa -) 81 mg PO DAILY [facility] Last Admin: 11/30/19 10:30 Dose: 81 mg Documented by: Atorvastatin Calcium (Lipitor -) 10 mg PO HS [facility] Last Admin: 11/29/19 21:57 Dose: 10 mg Documented by: Cholecalciferol (Vitamin D3 -) 1,000 unit PO DAILY [facility] Last Admin: 11/30/19 10:30 Dose: 1,000 unit Documented by: Fentanyl (Sublimaze Injection -) 25 mcg IVPUSH [id number] PRN PRN Reason: PAIN-PACU ORDER X 4 DOSES ONLY Heparin Sodium (Porcine) (Heparin -) 5,000 unit SQ BID [facility] Last Admin: 11/30/19 10:31 Dose: 5,000 unit Documented by: Ceftriaxone Sodium 1 gm/ (Dextrose) 50 mls @ 100 mls/hr IVPB DAILY [facility] Last Admin: 11/30/19 10:30 Dose: 100 mls/hr Documented by: Lactated Ringer's (Lactated Ringers Solution) 1,000 mls @ 125 mls/hr IV ASDIR [facility] Last Admin: 11/30/19 02:58 Dose: 125 mls/hr Documented by: Morphine Sulfate (Morphine Sulfate) 1 mg IVPUSH Q6H PRN PRN Reason: PAIN LEVEL 7 - 10 Ondansetron HCl (Zofran Injection) 4 mg IVPUSH Q6H PRN PRN Reason: NAUSEA AND/OR VOMITING - Objective Vital Signs: Vital Signs Temperature 98.3 F 11/30/19 14:00 Pulse Rate 90 11/30/19 14:00 Respiratory Rate 20 11/30/19 14:00 Blood Pressure 150/86 11/30/19 14:00 O2 Sat by Pulse Oximetry (%) 98 11/30/19 14:00 Constitutional: Yes: No Distress, Calm Eyes: Yes: Conjunctiva Clear HENT: Yes: Atraumatic Neck: Yes: Supple Cardiovascular: Yes: Regular Rate and Rhythm Respiratory: Yes: CTA Bilaterally Gastrointestinal: Yes: Soft. No: Tenderness Genitourinary: No: Hematuria Musculoskeletal: No: Joint Stiffness, Joint Swelling Extremities: No: Cold, Cool, Cyanosis Edema: No Integumentary: No: Rash, Venous Stasis Changes Neurological: Yes: Alert, Oriented ...Motor Strength: WNL Psychiatric: Yes: Alert, Oriented. No: Agitated, Suicidal Ideation Labs: CBC, BMP 11/29/19 08:00 11/30/19 06:35 - ....Imaging Other: Report Reviewed Assessment/Plan 74yo F hx kidney stones, CVA /TIA 7 years ago (with minimal residual right sided weakness), HTN, hyperlipidemia, prolapsed uterus (s/p hysterectomy and b/l oophorectomy), and varicose veins admitted with L obstructing renal stone. IVF; IV ATB, UCx results noted f/u s.p ureteral stent, if feels better can be DC home in am and f/u with next week in office pain meds prn d.w pt and staff
[2019-11-30] MEDS: ATORVASTATIN CA 10 MG TABLET (FP) PO SCH (21:47)
--- NOTE | 2019-12-01 08:32 | DS ---
Physical Examination Vital Signs: Vital Signs Temperature 98.7 F 12/01/19 06:00 Pulse Rate 87 12/01/19 06:00 Respiratory Rate 20 12/01/19 06:00 Blood Pressure 150/75 12/01/19 06:00 O2 Sat by Pulse Oximetry (%) 95 12/01/19 06:00 Findings/Remarks: feeling well no pain no hematuria Constitutional: Yes: No Distress, Calm Eyes: Yes: Conjunctiva Clear HENT: Yes: Atraumatic Neck: Yes: Supple Cardiovascular: Yes: Regular Rate and Rhythm Respiratory: Yes: CTA Bilaterally Gastrointestinal: Yes: Soft. No: Tenderness Renal/: No: Hematuria Musculoskeletal: No: Joint Stiffness, Joint Swelling Extremities: No: Cold, Cool, Cyanosis Edema: No Integumentary: No: Rash, Venous Stasis Changes Neurological: Yes: Alert, Oriented ...Motor Strength: WNL Psychiatric: Yes: Alert, Oriented. No: Agitated, Suicidal Ideation Labs: CBC, BMP 11/29/19 08:00 11/30/19 06:35 Discharge Summary Problems reviewed: Yes Reason For Visit: URINARY TRACT INFECTION/CALCULUS Current Active Problems Left ureteral calculus (Acute) Nephrolithiasis (Acute) Urinary tract infection (Acute) Procedures: Principal: 74 YOF HTN admitted with urinary colic and UTI sec to obstyructiong urinary stone. Other Procedures: Seen by had ureteral stent placed; also received IVF and iv antibiotics, pain meds prn. Hospital Course: Improved with above. DC home and f/u with PCPO and within 1 week. Condition: Stable - Instructions Diet, Activity, Other Instructions: f/u PCP and in 1 week of DC; take po antibiotic as prescribed; good h ydration. See SHANNAN Viveros in office next week for further stone and stent management; RTER if worse or recurrent symptoms. Referrals: Mary Steinberg [Primary Care Provider] - Casper Galarza MD [Staff Physician] - Disposition: HOME - Home Medications Comprehensive Discharge Medication List: Ambulatory Orders Amlodipine Besylate [Norvasc -] 5 mg PO DAILY 09/22/14 Aspirin [ASA -] 81 mg PO DAILY 09/22/14 Atorvastatin Ca [Lipitor] 10 mg PO HS 09/22/14 Cholecalciferol (Vitamin D3) [Vitamin D] 1,000 unit PO DAILY 09/22/14
[2019-12-01] MEDS ORDERED: DEXTROSE 5%-WATER - 50 ML IVPB ONE (09:34)
[2019-12-01] MEDS ORDERED: cefTRIAXone SODIUM 1 GM VIAL ONE (09:34)
[2019-12-01] MEDS: CEFTRIAXONE 1 GM in DEXTROSE 5%-WATER - 50 ML IVPB SCH (09:37)
[2019-12-01] MEDS: HEPARIN NA (PORCINE) 5,000 UNITS/ML 1ML VIAL SQ SCH (09:37)
[2019-12-01] MEDS: ASPIRIN 81 MG CHEWABLE TABLETS PO SCH (09:38)
[2019-12-01] MEDS: CHOLECALCIFEROL (VIT D3) 1,000 UNIT (25 MCG) TABLET PO SCH (09:38)
[2019-12-01] MEDS: amLODIPine BESYLATE 5 MG TABLET (FP) PO SCH (09:38)
[2019-12-01 14:50] VITALS: BP 136/72; PULSE 94; TEMP 98.8
== END 2019-12-01 16:30 | disposition home or self-care (01) | DRG 660 ==
LOC: JER 18:19 → JERBED 11-28 00:28 → J8W 11-28 15:45
PROVIDERS: ADMIT Internal Medicine; ATTEND Internal Medicine
PROC: 0T778DZ Dilation of Left Ureter with Intraluminal Device, Via Natural or Artificial Opening Endoscopic (ICD-10-PCS; principal; 2019-11-28 16:30)
PROC: BT1FZZZ Fluoroscopy of Left Kidney, Ureter and Bladder (ICD-10-PCS; 2019-11-28 16:30)
DX: N13.6 Pyonephrosis (principal); I69.351 Hemiplegia and hemiparesis following cerebral infarction affecting right dominant side; M19.90 Unspecified osteoarthritis, unspecified site; R42 Dizziness and giddiness; E78.5 Hyperlipidemia, unspecified; I10 Essential (primary) hypertension; D72.829 Elevated white blood cell count, unspecified; R00.0 Tachycardia, unspecified
CPT/HCPCS: 36415; 71045-TC-FY; 74177-TC; 76000-TC-FY; 80048; 80053; 81003; 82550; 84484; 85025; 87086; 93005; 93010; 94760; 99285-25; C9803; J1644; Q9967; U0003

== ENCOUNTER 2020-01-26 05:18 | Day surgery (SDC) | payer OTHER, MEDICARE ==
[2020-01-25 18:02] VITALS: BMI 31.0
[2020-01-26] MEDS ORDERED: PROPOFOL 20 ML ONE (07:23)
[2020-01-26] MEDS ORDERED: LIDOCAINE HCL/PF 2% SDV 5ML VIAL ONE (07:23)
[2020-01-26] MEDS ORDERED: MIDAZOLAM HCL 2 MG/2 ML SINGLE DOSE VIAL ONE (07:24)
[2020-01-26] MEDS ORDERED: LIDOCAINE HCL 1%, 10 MG/ML (20ML VIAL) ONE (07:25)
[2020-01-26] MEDS ORDERED: HEPARIN NA (PORCINE) 5,000 UNITS/ML 1ML VIAL ONE (07:25)
[2020-01-26] MEDS ORDERED: GENTAMICIN SO4 80 MG/2 ML VIAL IVPB ONE (07:40)
[2020-01-26] MEDS ORDERED: ceFAZolin SODIUM 1 GM VIAL IVPB ONE (07:41)
[2020-01-26] MEDS ORDERED: GENTAMICIN SO4 80 MG/2 ML VIAL ONE (07:41)
[2020-01-26] MEDS ORDERED: ceFAZolin SODIUM 1 GM VIAL ONE (07:41)
[2020-01-26] MEDS ORDERED: IOHEXOL 300 MG/ML INFUS..BTL IJ ONE (07:55)
[2020-01-26] MEDS ORDERED: ONDANSETRON 4 MG/2 ML VIAL IVPUSH PRN (08:11)
[2020-01-26] MEDS ORDERED: oxyCODONE HCL 5 MG TABLET PO PRN ×2 (08:11→08:46)
[2020-01-26] MEDS ORDERED: LACTATED RINGERS SOLUTION 1,000 ML IV SCH (08:15)
[2020-01-26] MEDS ORDERED: DEXTROSE 5%-0.45% SALINE 1,000 ML IV SCH (09:00)
[2020-01-26 10:15] VITALS: TEMP 97.7
[2020-01-26 12:02] VITALS: BP 168/80; PULSE 94
[2020-02-20 10:13] LABS: CA OXALATE MONOHYDR. 50%; SIZE 6 x 5; WEIGHT 133
[2020-02-20 10:14] LABS: URIC ACID 50%
== END 2020-01-26 12:39 | disposition home or self-care (01) ==
LOC: JASU-SURG 05:18
PROVIDERS: ATTEND Urology
PROC: 0TC48ZZ Extirpation of Matter from Left Kidney Pelvis, Via Natural or Artificial Opening Endoscopic (ICD-10-PCS; principal; 2020-01-26 07:30)
PROC: 0TC78ZZ Extirpation of Matter from Left Ureter, Via Natural or Artificial Opening Endoscopic (ICD-10-PCS; 2020-01-26 07:30)
PROC: 0T778DZ Dilation of Left Ureter with Intraluminal Device, Via Natural or Artificial Opening Endoscopic (ICD-10-PCS; 2020-01-26 07:30)
DX: N20.0 Calculus of kidney (principal); N20.1 Calculus of ureter
CPT/HCPCS: 36415; 76000-TC-FY; 82360; 88300-TC; 94760; J1644

== ENCOUNTER 2020-10-07 07:46 | Inpatient (IN) | payer OTHER, MEDICARE ==
[2020-10-07] MEDS ORDERED: SODIUM CHLORIDE 0.9% 500 ML INFUS.BAG IV ONE (09:33)
[2020-10-07 10:01] LABS: BASO % 0.3 % (0-2.0); EOS % 0.1 % (0-4.5); HEMATOCRIT 41.8 % (32.4-45.2); LYMPH % 9.1 % (8-40); MCH 27.2 pg (25.7-33.7); MCHC 33.6 g/dl (32.0-36.0); MEAN CELL VOLUME 80.9 fl (80-96); MEAN PLT VOLUME 7.7 fl (7.5-11.1); MONO % 4.6 % (3.8-10.2); NEUT % 85.9 % (42.8-82.8); PLATELET COUNT 266 10^3/uL (134-434); RBC 5.16 M/mm3 (3.60-5.2); RDW 15.7 % (11.6-15.6); WHITE BLOOD COUNT 8.4 K/mm3 (4.0-10.0)
[2020-10-07 10:04] LABS: EPI CELLS 13 /uL (0-25.1); HYALINE CASTS 1 /uL (0-3.1); PH,URINE 6.5 (5.0-8.0); URINE APPEARANCE CLEAR; URINE BACTERIA 42 /uL (0-1359); URINE BILIRUBIN NEGATIVE (NEGATIVE); URINE COLOR YELLOW; URINE GLUCOSE (UA) NEGATIVE (NEGATIVE); URINE KETONE NEGATIVE (NEGATIVE); URINE LEUK ESTERASE 2+ (NEGATIVE); URINE NITRITE NEGATIVE (NEGATIVE); URINE PROTEIN NEGATIVE (NEGATIVE); URINE UROBILINOGEN 0.2 mg/dL (0.2-1.0); URINE WBC 37 /uL (0-25.8)
[2020-10-07 10:07] LABS: INR 1.09 (0.83-1.09); PROTHROMBIN TIME (PATIENT) 13.1 SEC (9.7-13.0)
[2020-10-07 10:10] LABS: ACTIVATED PTT 28.2 SECONDS (25.2-36.5)
[2020-10-07 10:35] LABS: CHLORIDE 108 mmol/L (98-107); SODIUM 142 mmol/L (136-145)
[2020-10-07] MEDS ORDERED: CEFTRIAXONE 1,000 MG in DEXTROSE 5%-WATER - 50 ML IVPB ONE (10:36)
[2020-10-07 10:38] LABS: ALBUMIN 3.9 g/dl (3.4-5.0); ANION GAP 9 MMOL/L (8-16); BLOOD UREA NITROGEN 17.3 mg/dL (7-18); CO2 25 mmol/L (21-32); GLUCOSE,RANDOM 111 mg/dL (74-106)
[2020-10-07 10:41] LABS: CREATININE 0.8 mg/dL (0.55-1.3); SGOT/AST 19 U/L (15-37); SGPT/ALT 24 U/L (13-61)
[2020-10-07 10:43] LABS: BILIRUBIN,TOTAL 0.6 mg/dL (0.2-1); TOT PROT 7.9 g/dl (6.4-8.2)
[2020-10-07 10:44] LABS: ALK PHOS 137 U/L (45-117)
[2020-10-07] MEDS ORDERED: CEFTRIAXONE 1 GM/50 ML BAG ONE (10:56)
[2020-10-07] MEDS ORDERED: ACETAMINOPHEN 325 MG TABLET (FP) PO PRN (15:43)
[2020-10-07 20:58] VITALS: BMI 31.8
[2020-10-07] MEDS: ATORVASTATIN CA 10 MG TABLET (FP) PO SCH (21:23)
[2020-10-07] MEDS: HEPARIN NA (PORCINE) 5,000 UNITS/ML 1ML VIAL SQ SCH (21:26)
[2020-10-08 08:30] LABS: EOS % 1.4 % (0-4.5); HEMATOCRIT 41.9 % (32.4-45.2); HEMOGLOBIN 13.9 GM/dL (10.7-15.3); LYMPH % 25.5 % (8-40); MCH 26.8 pg (25.7-33.7); MCHC 33.3 g/dl (32.0-36.0); MEAN CELL VOLUME 80.6 fl (80-96); MEAN PLT VOLUME 7.6 fl (7.5-11.1); MONO % 8.8 % (3.8-10.2); NEUT % 63.3 % (42.8-82.8); PLATELET COUNT 257 10^3/uL (134-434); RBC 5.19 M/mm3 (3.60-5.2); RDW 15.5 % (11.6-15.6); WHITE BLOOD COUNT 6.6 K/mm3 (4.0-10.0)
[2020-10-08 08:51] LABS: BLOOD UREA NITROGEN 12.2 mg/dL (7-18); CALCIUM 8.8 mg/dL (8.5-10.1)
[2020-10-08 08:52] LABS: ALBUMIN 3.8 g/dl (3.4-5.0)
[2020-10-08 08:55] LABS: CREATININE 0.7 mg/dL (0.55-1.3)
[2020-10-08 08:56] LABS: BILIRUBIN,TOTAL 0.9 mg/dL (0.2-1); TOT PROT 7.7 g/dl (6.4-8.2)
[2020-10-08] MEDS ORDERED: DEXTROSE 5%-WATER - 50 ML IVPB ONE (09:15)
[2020-10-08] MEDS ORDERED: cefTRIAXone SODIUM 1 GM VIAL ONE (09:15)
[2020-10-08] MEDS: CEFTRIAXONE 1 GM in DEXTROSE 5%-WATER - 50 ML IVPB SCH (09:22)
[2020-10-08] MEDS: ASPIRIN 81 MG CHEWABLE TABLETS PO SCH (09:24)
[2020-10-08] MEDS: amLODIPine BESYLATE 5 MG TABLET (FP) PO SCH (09:24)
[2020-10-08] MEDS: HEPARIN NA (PORCINE) 5,000 UNITS/ML 1ML VIAL SQ SCH ×2 (09:24→21:05)
[2020-10-08] MEDS: CHOLECALCIFEROL (VIT D3) 1,000 UNIT (25 MCG) TABLET PO SCH (09:24)
[2020-10-08] MEDS: ATORVASTATIN CA 10 MG TABLET (FP) PO SCH (21:04)
[2020-10-09] MEDS ORDERED: cefTRIAXone SODIUM 1 GM VIAL ONE (08:38)
[2020-10-09] MEDS ORDERED: DEXTROSE 5%-WATER - 50 ML IVPB ONE (08:39)
[2020-10-09] MEDS: ASPIRIN 81 MG CHEWABLE TABLETS PO SCH (09:55)
[2020-10-09] MEDS: HEPARIN NA (PORCINE) 5,000 UNITS/ML 1ML VIAL SQ SCH (09:55)
[2020-10-09] MEDS: CHOLECALCIFEROL (VIT D3) 1,000 UNIT (25 MCG) TABLET PO SCH (09:55)
[2020-10-09] MEDS: CEFTRIAXONE 1 GM in DEXTROSE 5%-WATER - 50 ML IVPB SCH (09:55)
[2020-10-09] MEDS: amLODIPine BESYLATE 5 MG TABLET (FP) PO SCH (09:55)
[2020-10-09 13:50] VITALS: BP 155/85; PULSE 85; TEMP 98.2
== END 2020-10-09 15:11 | disposition home or self-care (01) | DRG 690 ==
LOC: JER 07:46 → JERBED 12:47 → J7W 20:15
PROVIDERS: ADMIT Internal Medicine; ATTEND Internal Medicine
DX: N39.0 Urinary tract infection, site not specified (principal); A09 Infectious gastroenteritis and colitis, unspecified; N20.0 Calculus of kidney; R31.0 Gross hematuria; K64.9 Unspecified hemorrhoids; I10 Essential (primary) hypertension; E78.5 Hyperlipidemia, unspecified; K44.9 Diaphragmatic hernia without obstruction or gangrene; K57.30 Diverticulosis of large intestine without perforation or abscess without bleeding; N28.1 Cyst of kidney, acquired
CPT/HCPCS: 36415; 71045-TC-FY; 74177-TC; 80053; 81003; 82272; 82550; 83605; 83735; 84484; 85025; 85610; 85730; 87086; 87186; 93005; 93010; 99285-25; C9803; J1644; Q9967; U0003; U0005

== ENCOUNTER 2020-11-02 06:52 | Inpatient (IN) | payer OTHER, MEDICARE ==
[2020-11-02] MEDS ORDERED: SODIUM CHLORIDE 500 ML IV STA (07:17)
[2020-11-02 08:18] LABS: BASO % 0.5 % (0-2.0); EOS % 0.2 % (0-4.5); HEMATOCRIT 41.8 % (32.4-45.2); LYMPH % 8.2 % (8-40); MCH 27.6 pg (25.7-33.7); MCHC 33.4 g/dl (32.0-36.0); MEAN CELL VOLUME 82.6 fl (80-96); MEAN PLT VOLUME 8.2 fl (7.5-11.1); MONO % 4.5 % (3.8-10.2); NEUT % 86.6 % (42.8-82.8); PLATELET COUNT 261 10^3/uL (134-434); RBC 5.06 M/mm3 (3.60-5.2); WHITE BLOOD COUNT 8.7 K/mm3 (4.0-10.0)
[2020-11-02 08:28] LABS: BLOOD UREA NITROGEN 15.3 mg/dL (7-18)
[2020-11-02 08:31] LABS: CREATININE 0.8 mg/dL (0.55-1.3)
[2020-11-02 08:32] LABS: BILIRUBIN,TOTAL 0.6 mg/dL (0.2-1)
[2020-11-02] MEDS ORDERED: ACETAMINOPHEN 1000 MG/100 ML VIAL (NON FORMULARY) IVPB ONE (08:38)
[2020-11-02 08:48] LABS: PH,URINE 6.5 (5.0-8.0); URINE APPEARANCE Cloudy; URINE BILIRUBIN Negative (NEGATIVE); URINE COLOR Yellow; URINE GLUCOSE (UA) Negative (NEGATIVE); URINE KETONE Negative (NEGATIVE); URINE LEUK ESTERASE 1+ (NEGATIVE); URINE NITRITE Negative (NEGATIVE); URINE PROTEIN Negative (NEGATIVE); URINE UROBILINOGEN 0.2 mg/dL (0.2-1.0)
[2020-11-02 08:54] LABS: EPI CELLS 20.8 /uL (0-25.1); URINE RBC 693.5 /uL (0-23.9); URINE WBC 33.4 /uL (0-25.8)
[2020-11-02 08:55] LABS: URINE BACTERIA 188.2 /uL (0-1359)
[2020-11-02] MEDS ORDERED: CEFTRIAXONE 1,000 MG in DEXTROSE 5%-WATER - 50 ML IVPB ONE (11:03)
[2020-11-02] MEDS ORDERED: cefTRIAXone SODIUM 1 GM VIAL ONE (11:06)
[2020-11-02] MEDS ORDERED: ACETAMINOPHEN 325 MG TABLET (FP) PO PRN ×2 (11:12→17:32)
[2020-11-02] MEDS ORDERED: SODIUM CHLORIDE 1,000 ML IV STA (13:38)
[2020-11-02] MEDS ORDERED: PROMETHAZINE HCL 25 MG/1 ML VIAL IVPUSH PRN (15:01)
[2020-11-02] MEDS ORDERED: ONDANSETRON 4 MG/2 ML VIAL IVPUSH PRN ×2 (15:01→17:32)
[2020-11-02] MEDS ORDERED: oxyCODONE HCL 5 MG TABLET PO PRN (15:01)
[2020-11-02] MEDS ORDERED: ceFAZolin SODIUM 1 GM VIAL IVPB ONE (16:35)
[2020-11-02] MEDS ORDERED: ceFAZolin SODIUM 1 GM VIAL ONE (16:38)
[2020-11-02] MEDS ORDERED: SODIUM CHLORIDE 0.9% P/F 10 ML VIAL IJ ONE (16:39)
[2020-11-02] MEDS ORDERED: DEXAMETHASONE SOD PHOSPHATE 4 MG/1 ML VIAL ONE (16:46)
[2020-11-02] MEDS ORDERED: PROPOFOL 20 ML ONE (16:47)
[2020-11-02] MEDS ORDERED: IOHEXOL 180 MG/1 ML ML IJ ONE (16:50)
[2020-11-02 19:48] VITALS: BMI 31.5
[2020-11-02] MEDS: HEPARIN NA (PORCINE) 5,000 UNITS/ML 1ML VIAL SQ SCH (21:06)
[2020-11-02] MEDS: ATORVASTATIN CA 10 MG TABLET (FP) PO SCH (21:06)
[2020-11-02] MEDS ORDERED: HEPARIN NA (PORCINE) 5,000 UNITS/ML 1ML VIAL SQ SCH (22:00)
[2020-11-02] MEDS ORDERED: ATORVASTATIN CA 10 MG TABLET (FP) PO SCH (22:00)
[2020-11-03] MEDS: TAMSULOSIN HCL 0.4 MG CAP PO SCH (09:58)
[2020-11-03] MEDS: ASPIRIN 81 MG CHEWABLE TABLETS PO SCH (09:58)
[2020-11-03] MEDS: amLODIPine BESYLATE 5 MG TABLET (FP) PO SCH (09:58)
[2020-11-03] MEDS: CHOLECALCIFEROL (VIT D3) 1,000 UNIT (25 MCG) TABLET PO SCH (09:58)
[2020-11-03] MEDS: HEPARIN NA (PORCINE) 5,000 UNITS/ML 1ML VIAL SQ SCH ×2 (09:59→21:28)
[2020-11-03] MEDS ORDERED: CEFTRIAXONE 1 GM in DEXTROSE 5%-WATER - 50 ML IVPB SCH (10:00)
[2020-11-03] MEDS ORDERED: CHOLECALCIFEROL (VIT D3) 1,000 UNIT (25 MCG) TABLET PO SCH (10:00)
[2020-11-03] MEDS ORDERED: ASPIRIN 81 MG CHEWABLE TABLETS PO SCH (10:00)
[2020-11-03] MEDS ORDERED: amLODIPine BESYLATE 5 MG TABLET (FP) PO SCH (10:00)
[2020-11-03] MEDS: ATORVASTATIN CA 10 MG TABLET (FP) PO SCH (21:28)
[2020-11-04 08:26] LABS: BASO % 0.5 % (0-2.0); EOS % 0.7 % (0-4.5); HEMATOCRIT 37.9 % (32.4-45.2); HEMOGLOBIN 12.7 GM/dL (10.7-15.3); LYMPH % 30.3 % (8-40); MCH 27.6 pg (25.7-33.7); MCHC 33.6 g/dl (32.0-36.0); MEAN PLT VOLUME 8.3 fl (7.5-11.1); MONO % 8.4 % (3.8-10.2); NEUT % 60.1 % (42.8-82.8); PLATELET COUNT 248 10^3/uL (134-434); RBC 4.62 M/mm3 (3.60-5.2); RDW 15.7 % (11.6-15.6); WHITE BLOOD COUNT 6.8 K/mm3 (4.0-10.0)
[2020-11-04 08:56] LABS: CALCIUM 8.4 mg/dL (8.5-10.1)
[2020-11-04 08:57] LABS: ALBUMIN 3.2 g/dl (3.4-5.0); BLOOD UREA NITROGEN 16.4 mg/dL (7-18)
[2020-11-04 09:00] LABS: CREATININE 0.8 mg/dL (0.55-1.3)
[2020-11-04 09:01] LABS: BILIRUBIN,TOTAL 0.9 mg/dL (0.2-1)
[2020-11-04 10:22] VITALS: BP 140/67; PULSE 88; TEMP 98.6
[2020-11-04] MEDS: CHOLECALCIFEROL (VIT D3) 1,000 UNIT (25 MCG) TABLET PO SCH (10:24)
[2020-11-04] MEDS: ASPIRIN 81 MG CHEWABLE TABLETS PO SCH (10:24)
[2020-11-04] MEDS: amLODIPine BESYLATE 5 MG TABLET (FP) PO SCH (10:24)
[2020-11-04] MEDS: TAMSULOSIN HCL 0.4 MG CAP PO SCH (10:25)
[2020-11-04] MEDS: HEPARIN NA (PORCINE) 5,000 UNITS/ML 1ML VIAL SQ SCH (10:25)
[2020-11-04] MEDS ORDERED: CEFTRIAXONE 1 GM in DEXTROSE 5%-WATER - 50 ML IVPB ONE (13:30)
[2020-11-04] MEDS ORDERED: cefTRIAXone SODIUM 1 GM VIAL ONE (13:46)
[2020-11-04] MEDS ORDERED: DEXTROSE 5%-WATER - 50 ML IVPB ONE (13:47)
== END 2020-11-04 17:34 | disposition home or self-care (01) | DRG 660 ==
LOC: JER 06:52 → JERBED 10:59 → J8W 18:33
PROVIDERS: ADMIT Internal Medicine; ATTEND Internal Medicine
PROC: 0T778DZ Dilation of Left Ureter with Intraluminal Device, Via Natural or Artificial Opening Endoscopic (ICD-10-PCS; principal; 2020-11-02 16:00)
PROC: BT1FYZZ Fluoroscopy of Left Kidney, Ureter and Bladder using Other Contrast (ICD-10-PCS; 2020-11-02 16:00)
DX: N13.6 Pyonephrosis (principal); I69.351 Hemiplegia and hemiparesis following cerebral infarction affecting right dominant side; I10 Essential (primary) hypertension; E78.5 Hyperlipidemia, unspecified; K57.90 Diverticulosis of intestine, part unspecified, without perforation or abscess without bleeding
CPT/HCPCS: 36415; 74177-TC; 76000-TC-FY; 80053; 81003; 82272; 83605; 83690; 85025; 87086; 87186; 93005; 93010; 94760; 99285-25; C9803; J0131; J1644; Q9967; U0003; U0005

== ENCOUNTER → 2020-11-29 | Day surgery (SDC) | payer OTHER, MEDICARE ==
[2020-11-26 10:47] VITALS: BMI 32.1
[~2020-11-29] MED LIST: DEXAMETHASONE SOD PHOSPHATE 4 MG/1 ML VIAL ONE; DEXTROSE 5%-0.45% SALINE 1,000 ML IV SCH; FUROSEMIDE 40 MG/4 ML INJECTABLE VIAL ONE; GENTAMICIN 80MG PREMIX BAG IVPB ONE; GENTAMICIN SO4 80 MG/2 ML VIAL ONE; KETOROLAC TROMETHAMINE 30 MG/1 ML VIAL ONE; LACTATED RINGERS SOLUTION 1,000 ML IV SCH; LIDOCAINE HCL/PF 2% SDV 5ML VIAL ONE; MIDAZOLAM HCL 2 MG/2 ML SINGLE DOSE VIAL ONE; ONDANSETRON 4 MG/2 ML VIAL IVPUSH PRN; PROMETHAZINE HCL 25 MG/1 ML VIAL IVPB PRN; PROPOFOL 20 ML ONE; ceFAZolin SODIUM 1 GM VIAL IVPB ONE; ceFAZolin SODIUM 1 GM VIAL ONE; oxyCODONE HCL 5 MG TABLET PO PRN
[2020-11-29 10:59] VITALS: BP 160/90; PULSE 72; TEMP 97.5
== END | disposition home or self-care (01) ==
LOC: JASU-SURG 04:54
PROVIDERS: ATTEND Urology
PROC: 0TC48ZZ Extirpation of Matter from Left Kidney Pelvis, Via Natural or Artificial Opening Endoscopic (ICD-10-PCS; principal; 2020-11-29 07:30)
PROC: 0T778DZ Dilation of Left Ureter with Intraluminal Device, Via Natural or Artificial Opening Endoscopic (ICD-10-PCS; 2020-11-29 07:30)
DX: N20.0 Calculus of kidney (principal)
CPT/HCPCS: 36415; 76000-TC-FY; 82360; 87086; 88300-TC; 94760

== ENCOUNTER 2021-05-03 08:02 | Observation (INO) | payer OTHER, MEDICARE ==
[2021-05-03] MEDS ORDERED: SODIUM CHLORIDE 0.9% 500 ML INFUS.BAG IV ONE (08:50)
[2021-05-03 10:29] LABS: BASO % 0.6 % (0-2.0); EOS % 0.8 % (0-4.5); HEMATOCRIT 40.4 % (32.4-45.2); HEMOGLOBIN 13.1 GM/dL (10.7-15.3); LYMPH % 16.3 % (8-40); MCH 25.2 pg (25.7-33.7); MCHC 32.5 g/dl (32.0-36.0); MEAN CELL VOLUME 77.6 fl (80-96); MEAN PLT VOLUME 7.9 fl (7.5-11.1); NEUT % 74.3 % (42.8-82.8); PLATELET COUNT 267 10^3/uL (134-434); RBC 5.21 M/mm3 (3.60-5.2); RDW 18.7 % (11.6-15.6); WHITE BLOOD COUNT 6.5 K/mm3 (4.0-10.0)
[2021-05-03 10:45] LABS: EPI CELLS 9 /uL (0-25.1); HYALINE CASTS 1 /uL (0-3.1); PH,URINE 6.5 (5.0-8.0); URINE APPEARANCE CLEAR; URINE BACTERIA 90 /uL (0-1359); URINE BILIRUBIN NEGATIVE (NEGATIVE); URINE COLOR YELLOW; URINE GLUCOSE (UA) NEGATIVE (NEGATIVE); URINE KETONE NEGATIVE (NEGATIVE); URINE LEUK ESTERASE 1+ (NEGATIVE); URINE NITRITE NEGATIVE (NEGATIVE); URINE PROTEIN NEGATIVE (NEGATIVE); URINE RBC 2 /uL (0-23.9); URINE UROBILINOGEN 0.2 mg/dL (0.2-1.0); URINE WBC 18 /uL (0-25.8)
[2021-05-03 10:48] LABS: CHLORIDE 122 mmol/L (98-107); SODIUM 148 mmol/L (136-145)
[2021-05-03 10:51] LABS: ALBUMIN 2.5 g/dl (3.4-5.0); ANION GAP 7 MMOL/L (8-16); BLOOD UREA NITROGEN 14.9 mg/dL (7-18); CO2 19 mmol/L (21-32); GLUCOSE,RANDOM 73 mg/dL (74-106); MAGNESIUM 1.5 mg/dL (1.8-2.4)
[2021-05-03 10:54] LABS: CREATININE 0.3 mg/dL (0.55-1.3); SGOT/AST 17 U/L (15-37); SGPT/ALT 17 U/L (13-61)
[2021-05-03] MEDS ORDERED: POTASSIUM CHLORIDE ORAL LIQUID 20 MEQ/15 ML PO ONE (10:55)
[2021-05-03 10:56] LABS: BILIRUBIN,TOTAL 0.3 mg/dL (0.2-1); TOT PROT 4.9 g/dl (6.4-8.2)
[2021-05-03 10:57] LABS: ALK PHOS 85 U/L (45-117)
[2021-05-03 10:59] LABS: N-TERMINAL BNP 99.3 pg/ml (5-450)
[2021-05-03 11:25] LABS: CALCIUM 6.2 mg/dL (8.5-10.1)
[2021-05-03] MEDS ORDERED: MAGNESIUM SULF 50% (8.12 MEQ/2 ML-1 GM VIAL) IVPB ONE (11:31)
[2021-05-03] MEDS ORDERED: POTASSIUM CHLORIDE ORAL LIQUID 20 MEQ/15 ML ONE (12:28)
[2021-05-03] MEDS ORDERED: MAGNESIUM SULFATE IN WATER 2 GM/50 ML IVPB IVPB ONE ×2 (12:29→12:49)
[2021-05-03 15:28] LABS: BLOOD UREA NITROGEN 14.5 mg/dL (7-18)
[2021-05-03 15:30] LABS: CREATININE 0.6 mg/dL (0.55-1.3)
[2021-05-03 15:32] LABS: TOT PROT 6.9 g/dl (6.4-8.2)
[2021-05-03 15:33] LABS: BILIRUBIN,TOTAL 0.8 mg/dL (0.2-1)
[2021-05-03 15:36] LABS: ALBUMIN 3.6 g/dl (3.4-5.0); CALCIUM 8.8 mg/dL (8.5-10.1)
[2021-05-03] MEDS ORDERED: ACETAMINOPHEN 325 MG TABLET (FP) PO PRN (18:15)
[2021-05-03] MEDS: ATORVASTATIN CA 10 MG TABLET (FP) PO SCH (21:31)
[2021-05-03 22:35] VITALS: BMI 32.1
[2021-05-04 07:42] LABS: BASO % 0.6 % (0-2.0); EOS % 1.5 % (0-4.5); HEMATOCRIT 38.2 % (32.4-45.2); HEMOGLOBIN 12.3 GM/dL (10.7-15.3); MCHC 32.2 g/dl (32.0-36.0); MEAN CELL VOLUME 77.6 fl (80-96); NEUT % 65.9 % (42.8-82.8); PLATELET COUNT 276 10^3/uL (134-434); RBC 4.92 M/mm3 (3.60-5.2); RDW 18.7 % (11.6-15.6); WHITE BLOOD COUNT 6.3 K/mm3 (4.0-10.0)
[2021-05-04 08:06] LABS: CALCIUM 9.2 mg/dL (8.5-10.1)
[2021-05-04 08:07] LABS: ALBUMIN 3.6 g/dl (3.4-5.0); BLOOD UREA NITROGEN 14.9 mg/dL (7-18); MAGNESIUM 2.5 mg/dL (1.8-2.4)
[2021-05-04 08:09] LABS: CREATININE 0.7 mg/dL (0.55-1.3)
[2021-05-04 08:12] LABS: BILIRUBIN,TOTAL 1.1 mg/dL (0.2-1)
[2021-05-04] MEDS: amLODIPine BESYLATE 5 MG TABLET (FP) PO SCH (09:58)
[2021-05-04] MEDS: ASPIRIN 81 MG CHEWABLE TABLETS PO SCH (09:58)
[2021-05-04] MEDS: ATORVASTATIN CA 10 MG TABLET (FP) PO SCH (21:43)
[2021-05-05 07:37] LABS: CALCIUM 9.3 mg/dL (8.5-10.1)
[2021-05-05 07:39] LABS: ALBUMIN 3.5 g/dl (3.4-5.0); BLOOD UREA NITROGEN 23.4 mg/dL (7-18); MAGNESIUM 2.3 mg/dL (1.8-2.4)
[2021-05-05 07:41] LABS: CREATININE 0.8 mg/dL (0.55-1.3)
[2021-05-05 07:43] LABS: BILIRUBIN,TOTAL 0.7 mg/dL (0.2-1)
[2021-05-05 07:44] LABS: TOT PROT 6.8 g/dl (6.4-8.2)
[2021-05-05] MEDS: ASPIRIN 81 MG CHEWABLE TABLETS PO SCH (12:28)
[2021-05-05] MEDS: amLODIPine BESYLATE 5 MG TABLET (FP) PO SCH (12:28)
[2021-05-05] MEDS: ATORVASTATIN CA 10 MG TABLET (FP) PO SCH (21:19)
[2021-05-06 07:48] LABS: CALCIUM 9.2 mg/dL (8.5-10.1)
[2021-05-06 07:50] LABS: BLOOD UREA NITROGEN 26.8 mg/dL (7-18)
[2021-05-06 07:53] LABS: CREATININE 0.8 mg/dL (0.55-1.3)
[2021-05-06] MEDS: amLODIPine BESYLATE 5 MG TABLET (FP) PO SCH (11:12)
[2021-05-06] MEDS: ASPIRIN 81 MG CHEWABLE TABLETS PO SCH (11:12)
[2021-05-06 15:09] VITALS: BP 155/72; PULSE 92; TEMP 95.7
== END 2021-05-06 21:33 | disposition home or self-care (01) ==
LOC: JER 08:02 → JERBED 12:31 → J4W 21:01
PROVIDERS: ADMIT Specialist; ATTEND Specialist
PROC: 3E033GC Introduction of Other Therapeutic Substance into Peripheral Vein, Percutaneous Approach (ICD-10-PCS; principal; 2021-05-03)
PROC: 3E0337Z Introduction of Electrolytic and Water Balance Substance into Peripheral Vein, Percutaneous Approach (ICD-10-PCS; 2021-05-03)
DX: G45.9 Transient cerebral ischemic attack, unspecified (principal); I69.851 Hemiplegia and hemiparesis following other cerebrovascular disease affecting right dominant side; R01.1 Cardiac murmur, unspecified; I10 Essential (primary) hypertension; E66.9 Obesity, unspecified; E78.5 Hyperlipidemia, unspecified; Z68.32 Body mass index [BMI] 32.0-32.9, adult; Z87.442 Personal history of urinary calculi; R26.81 Unsteadiness on feet; K80.20 Calculus of gallbladder without cholecystitis without obstruction; Z99.89 Dependence on other enabling machines and devices; Z90.79 Acquired absence of other genital organ(s); Z87.891 Personal history of nicotine dependence; R42 Dizziness and giddiness; Z91.013 Allergy to seafood; Z91.018 Allergy to other foods; Z88.0 Allergy status to penicillin; Z88.8 Allergy status to other drugs, medicaments and biological substances; Z87.440 Personal history of urinary (tract) infections; E55.9 Vitamin D deficiency, unspecified
CPT/HCPCS: 36415; 70450-TC; 70544-TC; 70551-TC; 71045-TC-FY; 80048; 80053; 81003; 82607; 82962; 83735; 83880; 84484; 85025; 87086; 87186; 93005; 93010; 96361; 96374; 99285-25; C9803-CS; G0378; U0003; U0005

== ENCOUNTER 2022-08-07 | Observation (INO) | payer OTHER, MEDICARE ==
[2022-08-07] MEDS ORDERED: SODIUM CHLORIDE 0.9% 500 ML INFUS.BAG IV ONE (00:15)
[2022-08-07] MEDS ORDERED: ONDANSETRON 4 MG/2 ML VIAL IVPUSH ONE (00:15)
[2022-08-07] MEDS ORDERED: ACETAMINOPHEN 1000 MG/100 ML BAG IVPB ONE (00:15)
[2022-08-07 00:56] LABS: BASO % 0.5 % (0-2.0); EOS % 0.8 % (0-4.5); HEMATOCRIT 41.6 % (32.4-45.2); HEMOGLOBIN 13.8 GM/dL (10.7-15.3); LYMPH % 11.5 % (8-40); MCH 26.9 pg (25.7-33.7); MCHC 33.1 g/dl (32.0-36.0); MONO % 6.6 % (3.8-10.2); NEUT % 80.6 % (42.8-82.8); PLATELET COUNT 284 10^3/uL (134-434); RBC 5.13 M/mm3 (3.60-5.2); RDW 15.5 % (11.6-15.6); WHITE BLOOD COUNT 10.6 K/mm3 (4.0-10.0)
[2022-08-07] MEDS ORDERED: ONDANSETRON 4 MG/2 ML VIAL ONE (01:05)
[2022-08-07] MEDS ORDERED: ACETAMINOPHEN INJECTION 100 ML IVPB ONE (01:05)
[2022-08-07 01:08] VITALS: BMI 33.4
[2022-08-07 01:08] LABS: INR 1.05 (0.83-1.09); PROTHROMBIN TIME (PATIENT) 12.2 SEC (9.7-13.0)
[2022-08-07 01:11] LABS: ACTIVATED PTT 30.2 SECONDS (25.2-36.5)
[2022-08-07 01:48] LABS: EPI CELLS 23 /uL (0-25.1); HYALINE CASTS 0 /uL (0-3.1); PH,URINE 5.5 (5.0-8.0); URINE APPEARANCE CLEAR; URINE BACTERIA 177 /uL (0-1359); URINE BILIRUBIN NEGATIVE (NEGATIVE); URINE COLOR YELLOW; URINE GLUCOSE (UA) NEGATIVE (NEGATIVE); URINE KETONE TRACE (NEGATIVE); URINE LEUK ESTERASE 1+ (NEGATIVE); URINE NITRITE NEGATIVE (NEGATIVE); URINE PROTEIN TRACE (NEGATIVE); URINE UROBILINOGEN 0.2 mg/dL (0.2-1.0); URINE WBC 90 /uL (0-25.8)
[2022-08-07] MEDS ORDERED: CEFTRIAXONE 1 GM in DEXTROSE 5%-WATER - 100 ML IVPB ONE (01:51)
[2022-08-07] MEDS ORDERED: CEFTRIAXONE 1 GM/50 ML BAG ONE (01:56)
[2022-08-07 02:03] LABS: ALBUMIN 4.2 g/dl (3.4-5.0); BILIRUBIN,TOTAL 0.5 mg/dL (0.2-1); BLOOD UREA NITROGEN 18.8 mg/dL (7-18); CALCIUM 9.4 mg/dL (8.5-10.1); CREATININE 0.8 mg/dL (0.55-1.3); POTASSIUM 3.8 mmol/L (3.5-5.1); TOT PROT 7.9 g/dl (6.4-8.2)
[2022-08-07] MEDS ORDERED: CEFTRIAXONE 1 GM in DEXTROSE 5%-WATER - 50 ML IVPB SCH (10:30)
[2022-08-07] MEDS: CHOLECALCIFEROL (VIT D3) 1,000 UNIT (25 MCG) TABLET PO SCH (11:14)
[2022-08-07] MEDS: amLODIPine BESYLATE 5 MG TABLET (FP) PO SCH (11:14)
[2022-08-07] MEDS: ATORVASTATIN CA 10 MG TABLET (FP) PO SCH (11:14)
[2022-08-07] MEDS: ASPIRIN 81 MG CHEWABLE TABLETS PO SCH (11:14)
[2022-08-07] MEDS: HEPARIN NA (PORCINE) 5,000 UNITS/ML 1ML VIAL SQ SCH ×2 (11:14→22:36)
[2022-08-07] MEDS: CEFTRIAXONE 1 GM in DEXTROSE 5%-WATER - 50 ML IVPB SCH (11:14)
[2022-08-07] MEDS ORDERED: ACETAMINOPHEN 325 MG TABLET (FP) PO PRN ×2 (16:54→16:55)
[2022-08-07] MEDS ORDERED: LATANOPROST 0.005% OPHTH SOLN 2.5ML BOTTLE OU SCH ×2 (22:00→22:03)
[2022-08-07] MEDS: SILVER SULFADIAZINE 1% TOP CREAM 400 GM JAR TP SCH (22:35)
[2022-08-07] MEDS: TIMOLOL 0.5% OPHTHALMIC SOL 5 ML BOTTLE OS SCH (22:36)
[2022-08-08 04:33] VITALS: RESP 18
[2022-08-08 07:53] LABS: BASO % 0.9 % (0-2.0); EOS % 2.8 % (0-4.5); HEMATOCRIT 41.1 % (32.4-45.2); HEMOGLOBIN 13.1 GM/dL (10.7-15.3); LYMPH % 23.9 % (8-40); MCH 26.8 pg (25.7-33.7); MEAN CELL VOLUME 83.7 fl (80-96); MEAN PLT VOLUME 8.3 fl (7.5-11.1); MONO % 9.9 % (3.8-10.2); NEUT % 62.5 % (42.8-82.8); PLATELET COUNT 273 10^3/uL (134-434); RDW 15.4 % (11.6-15.6); WHITE BLOOD COUNT 6.8 K/mm3 (4.0-10.0)
[2022-08-08 08:08] LABS: POTASSIUM 4.3 mmol/L (3.5-5.1)
[2022-08-08 08:11] LABS: BLOOD UREA NITROGEN 12.6 mg/dL (7-18)
[2022-08-08 08:12] LABS: CALCIUM 9.4 mg/dL (8.5-10.1)
[2022-08-08 08:13] LABS: ALBUMIN 3.5 g/dl (3.4-5.0)
[2022-08-08 08:15] LABS: CREATININE 0.8 mg/dL (0.55-1.3)
[2022-08-08 08:17] LABS: BILIRUBIN,TOTAL 0.8 mg/dL (0.2-1)
[2022-08-08] MEDS: ATORVASTATIN CA 10 MG TABLET (FP) PO SCH (09:28)
[2022-08-08] MEDS: amLODIPine BESYLATE 5 MG TABLET (FP) PO SCH (09:28)
[2022-08-08] MEDS: HEPARIN NA (PORCINE) 5,000 UNITS/ML 1ML VIAL SQ SCH (09:28)
[2022-08-08] MEDS: CHOLECALCIFEROL (VIT D3) 1,000 UNIT (25 MCG) TABLET PO SCH (09:28)
[2022-08-08] MEDS: CEFTRIAXONE 1 GM in DEXTROSE 5%-WATER - 50 ML IVPB SCH (09:28)
[2022-08-08] MEDS: ASPIRIN 81 MG CHEWABLE TABLETS PO SCH (09:29)
[2022-08-08] MEDS: TIMOLOL 0.5% OPHTHALMIC SOL 5 ML BOTTLE OS SCH (09:29)
[2022-08-08] MEDS: SILVER SULFADIAZINE 1% TOP CREAM 400 GM JAR TP SCH (09:30)
[2022-08-08 14:24] VITALS: BP 137/73; PULSE 82; TEMP 98.1
== END 2022-08-08 20:14 | disposition home or self-care (01) ==
LOC: JER → JERBED 05:09 → J6S 07:21 → JERBED 07:22 → J6S 07:51
PROVIDERS: ADMIT Internal Medicine; ATTEND Internal Medicine
PROC: 3E033NZ Introduction of Analgesics, Hypnotics, Sedatives into Peripheral Vein, Percutaneous Approach (ICD-10-PCS; principal; 2022-08-07)
PROC: 3E03329 Introduction of Other Anti-infective into Peripheral Vein, Percutaneous Approach (ICD-10-PCS; 2022-08-07)
PROC: 3E023GC Introduction of Other Therapeutic Substance into Muscle, Percutaneous Approach (ICD-10-PCS; 2022-08-07)
PROC: 3E033GC Introduction of Other Therapeutic Substance into Peripheral Vein, Percutaneous Approach (ICD-10-PCS; 2022-08-07)
PROC: 3E0337Z Introduction of Electrolytic and Water Balance Substance into Peripheral Vein, Percutaneous Approach (ICD-10-PCS; 2022-08-07)
DX: N30.00 Acute cystitis without hematuria (principal); I10 Essential (primary) hypertension; N20.0 Calculus of kidney; R42 Dizziness and giddiness; E78.5 Hyperlipidemia, unspecified; Z87.891 Personal history of nicotine dependence; Z88.0 Allergy status to penicillin; Z91.013 Allergy to seafood; Z88.1 Allergy status to other antibiotic agents; Z91.018 Allergy to other foods
CPT/HCPCS: 36415; 71045-TC-FY; 71250-TC; 74176-TC; 80053; 81003; 83690; 84484; 85025; 85610; 85730; 86850; 86900; 86901; 87077; 87086; 93005; 93010; 96365; 96366; 96372; 96375; 99285-25; G0378; J1644

== ENCOUNTER 2022-11-28 15:24 | Inpatient (IN) | payer OTHER, MEDICARE ==
[2022-11-28] MEDS ORDERED: ACETAMINOPHEN 1000 MG/100 ML BAG IVPB ONE (15:59)
[2022-11-28] MEDS ORDERED: ACETAMINOPHEN INJECTION 100 ML IVPB ONE (16:11)
[2022-11-28 17:10] LABS: BASO % 0.7 % (0-2.0); EOS % 0.6 % (0-4.5); INR 1.16 (0.83-1.09); LYMPH % 12.1 % (8-40); MCH 27.6 pg (25.7-33.7); MCHC 34.1 g/dl (32.0-36.0); MEAN CELL VOLUME 81.1 fl (80-96); MEAN PLT VOLUME 7.7 fl (7.5-11.1); NEUT % 80.6 % (42.8-82.8); PLATELET COUNT 309 10^3/uL (134-434); PROTHROMBIN TIME (PATIENT) 13.4 SEC (9.7-13.0); RBC 4.69 M/mm3 (3.60-5.2); RDW 15.2 % (11.6-15.6); WHITE BLOOD COUNT 10.2 K/mm3 (4.0-10.0)
[2022-11-28 17:11] LABS: ACTIVATED PTT 25.2 SECONDS (25.2-36.5)
[2022-11-28 17:15] LABS: EPI CELLS 22 /uL (0-25.1); HYALINE CASTS 2 /uL (0-3.1); PH,URINE 5.5 (5.0-8.0); URINE APPEARANCE CLOUDY; URINE BACTERIA 348 /uL (0-1359); URINE BILIRUBIN NEGATIVE (NEGATIVE); URINE COLOR YELLOW; URINE GLUCOSE (UA) NEGATIVE (NEGATIVE); URINE KETONE TRACE (NEGATIVE); URINE LEUK ESTERASE 2+ (NEGATIVE); URINE NITRITE NEGATIVE (NEGATIVE); URINE PROTEIN TRACE (NEGATIVE); URINE RBC 609 /uL (0-23.9); URINE UROBILINOGEN 0.2 mg/dL (0.2-1.0); URINE WBC 300 /uL (0-25.8)
[2022-11-28 17:16] LABS: POTASSIUM 3.9 mmol/L (3.5-5.1)
[2022-11-28 17:19] LABS: ALBUMIN 3.8 g/dl (3.4-5.0); BLOOD UREA NITROGEN 19.5 mg/dL (7-18); CALCIUM 8.9 mg/dL (8.5-10.1)
[2022-11-28 17:23] LABS: BILIRUBIN,TOTAL 0.8 mg/dL (0.2-1); CREATININE 0.9 mg/dL (0.55-1.3)
[2022-11-28 17:24] LABS: TOT PROT 7.8 g/dl (6.4-8.2)
[2022-11-28 17:41] LABS: URINE CRYSTALS NONE SEEN /hpf
[2022-11-28] MEDS ORDERED: MEROPENEM 1 GM in DEXTROSE 5%-WATER 100 ML IVPB ONE (18:44)
[2022-11-28] MEDS ORDERED: MEROPENEM 1 GM VIAL (RESTRICTED TO ID) IVPB ONE (19:00)
[2022-11-29] MEDS ORDERED: ACETAMINOPHEN 325 MG TABLET (FP) PO PRN ×2 (00:49)
[2022-11-29] MEDS ORDERED: TAMSULOSIN HCL 0.4 MG CAP ONE (09:38)
[2022-11-29] MEDS: TAMSULOSIN HCL 0.4 MG CAP PO SCH (09:58)
[2022-11-29] MEDS ORDERED: CHOLECALCIFEROL (VIT D3) 400 UNIT (10 MCG) TABLET PO SCH (10:00)
[2022-11-29] MEDS ORDERED: PATIENT'S OWN MEDICATION (NON-FORMULARY) (Timolol Maleate/Pf [Timolol Maleate 0.5% Eye Dro OS SCH (10:00)
[2022-11-29] MEDS ORDERED: CEFTRIAXONE 1 GM/50 ML BAG ONE (10:08)
[2022-11-29] MEDS: HEPARIN NA (PORCINE) 5,000 UNITS/ML 1ML VIAL SQ SCH ×2 (10:18→22:36)
[2022-11-29] MEDS: LOSARTAN POTASSIUM 25 MG TABLET PO SCH (10:18)
[2022-11-29] MEDS: ASPIRIN 81 MG CHEWABLE TABLETS PO SCH (10:18)
[2022-11-29] MEDS: amLODIPine BESYLATE 5 MG TABLET (FP) PO SCH (10:19)
[2022-11-29] MEDS: CEFTRIAXONE 1,000 MG in DEXTROSE 5%-WATER - 50 ML IVPB SCH (10:19)
[2022-11-29 11:17] VITALS: BMI 32.4
[2022-11-29] MEDS ORDERED: LATANOPROST 0.005% OPHTH SOLN 2.5ML BOTTLE OU SCH (22:00)
[2022-11-29] MEDS ORDERED: ATORVASTATIN CA 10 MG TABLET (FP) PO SCH (22:00)
[2022-11-30 07:11] VITALS: RESP 18
[2022-11-30 09:21] LABS: BASO % 1.2 % (0-2.0); HEMOGLOBIN 11.5 GM/dL (10.7-15.3); LYMPH % 24.4 % (8-40); MCH 27.1 pg (25.7-33.7); MCHC 33.9 g/dl (32.0-36.0); MEAN PLT VOLUME 7.2 fl (7.5-11.1); MONO % 8.7 % (3.8-10.2); NEUT % 63.7 % (42.8-82.8); PLATELET COUNT 290 10^3/uL (134-434); RBC 4.26 M/mm3 (3.60-5.2); RDW 15.1 % (11.6-15.6); WHITE BLOOD COUNT 6.6 K/mm3 (4.0-10.0)
[2022-11-30 09:47] LABS: POTASSIUM 3.3 mmol/L (3.5-5.1)
[2022-11-30 09:53] LABS: CALCIUM 8.3 mg/dL (8.5-10.1)
[2022-11-30 09:54] LABS: BLOOD UREA NITROGEN 14.8 mg/dL (7-18)
[2022-11-30 09:57] LABS: CREATININE 0.7 mg/dL (0.55-1.3)
[2022-11-30 09:58] LABS: BILIRUBIN,TOTAL 0.8 mg/dL (0.2-1); TOT PROT 6.4 g/dl (6.4-8.2)
[2022-11-30] MEDS ORDERED: CHOLECALCIFEROL (VIT D3) 1,000 UNIT (25 MCG) TABLET PO SCH (10:00)
[2022-11-30 10:01] LABS: ALBUMIN 3.1 g/dl (3.4-5.0)
[2022-11-30] MEDS: TAMSULOSIN HCL 0.4 MG CAP PO SCH (10:31)
[2022-11-30] MEDS: ASPIRIN 81 MG CHEWABLE TABLETS PO SCH (10:32)
[2022-11-30] MEDS: HEPARIN NA (PORCINE) 5,000 UNITS/ML 1ML VIAL SQ SCH (10:32)
[2022-11-30] MEDS ORDERED: CEFTRIAXONE 1 GM in DEXTROSE 5%-WATER - 50 ML IVPB SCH (10:45)
[2022-11-30] MEDS: CEFTRIAXONE 1,000 MG in DEXTROSE 5%-WATER - 50 ML IVPB SCH (10:53)
[2022-11-30] MEDS: LOSARTAN POTASSIUM 25 MG TABLET PO SCH (13:42)
[2022-11-30] MEDS: amLODIPine BESYLATE 5 MG TABLET (FP) PO SCH (13:42)
[2022-11-30] MEDS ORDERED: POTASSIUM CHLORIDE TABS 10 MEQ TABLET.ER (FP) PO ONE (17:39)
[2022-11-30 19:04] VITALS: BP 129/70; PULSE 82; TEMP 97.9
== END 2022-11-30 19:16 | disposition home or self-care (01) | DRG 690 ==
LOC: JER 15:24 → JERBED 19:34 → J5S 11-29 10:23
PROVIDERS: ADMIT Internal Medicine; ATTEND Internal Medicine
DX: N39.0 Urinary tract infection, site not specified (principal); N20.1 Calculus of ureter; I10 Essential (primary) hypertension; E78.5 Hyperlipidemia, unspecified
CPT/HCPCS: 36415; 74176-TC; 76775-TC; 80053; 81003; 85025; 85610; 85730; 87086; 99285-25; J1644

== ENCOUNTER 2023-05-01 15:37 | Inpatient (IN) | payer OTHER, MEDICARE ==
[2023-05-01] MEDS ORDERED: ACETAMINOPHEN INJECTION 100 ML IVPB ONE (16:35)
[2023-05-01] MEDS: SODIUM CHLORIDE 0.9% 500 ML INFUS.BAG IV ONE (16:59)
[2023-05-01] MEDS: ACETAMINOPHEN 1000 MG/100 ML BAG IVPB ONE (16:59)
[2023-05-01 17:02] LABS: BASO % 0.5 % (0-2.0); EOS % 0.2 % (0-4.5); HEMATOCRIT 40.2 % (32.4-45.2); HEMOGLOBIN 13.4 GM/dL (10.7-15.3); LYMPH % 8.2 % (8-40); MCH 26.9 pg (25.7-33.7); MCHC 33.4 g/dl (32.0-36.0); MEAN CELL VOLUME 80.6 fl (80-96); MEAN PLT VOLUME 7.4 fl (7.5-11.1); MONO % 5.3 % (3.8-10.2); NEUT % 85.8 % (42.8-82.8); PLATELET COUNT 292 10^3/uL (134-434); RBC 4.99 M/mm3 (3.60-5.2); RDW 16.6 % (11.6-15.6); WHITE BLOOD COUNT 10.8 K/mm3 (4.0-10.0)
[2023-05-01 17:09] LABS: INR 1.12 (0.83-1.09)
[2023-05-01 17:19] LABS: POTASSIUM 5.1 mmol/L (3.5-5.1)
[2023-05-01 17:22] LABS: ALBUMIN 3.9 g/dl (3.4-5.0); BLOOD UREA NITROGEN 23.4 mg/dL (7-18); CALCIUM 9.2 mg/dL (8.5-10.1)
[2023-05-01 17:25] LABS: CREATININE 1.1 mg/dL (0.55-1.3)
[2023-05-01 17:27] LABS: BILIRUBIN,TOTAL 0.8 mg/dL (0.2-1)
[2023-05-01 20:37] LABS: EPI CELLS 9 /uL (0-25.1); HYALINE CASTS 1 /uL (0-3.1); URINE APPEARANCE CLEAR; URINE BACTERIA 112 /uL (0-1359); URINE BILIRUBIN NEGATIVE (NEGATIVE); URINE COLOR YELLOW; URINE GLUCOSE (UA) NEGATIVE (NEGATIVE); URINE KETONE NEGATIVE (NEGATIVE); URINE LEUK ESTERASE 2+ (NEGATIVE); URINE NITRITE NEGATIVE (NEGATIVE); URINE PROTEIN NEGATIVE (NEGATIVE); URINE RBC 28 /uL (0-23.9); URINE UROBILINOGEN 0.2 mg/dL (0.2-1.0); URINE WBC 298 /uL (0-25.8)
[2023-05-01] MEDS ORDERED: CEFTRIAXONE 1 GM/50 ML BAG ONE (21:25)
[2023-05-01] MEDS ORDERED: LATANOPROST OU SCH (22:00)
[2023-05-01] MEDS ORDERED: PATIENT'S OWN MEDICATION (NON-FORMULARY) (Timolol Maleate/Pf [Timolol Maleate 0.5% Eye Dro OS SCH (22:00)
[2023-05-01] MEDS: HEPARIN NA (PORCINE) 5,000 UNITS/ML 1ML VIAL SQ SCH (22:45)
[2023-05-01] MEDS: CEFTRIAXONE 1 GM in DEXTROSE 5%-WATER - 50 ML IVPB ONE (22:45)
[2023-05-01] MEDS: oxyCODONE HCL 5 MG TABLET PO PRN (22:46)
[2023-05-01] MEDS: CEFTRIAXONE 1,000 MG in DEXTROSE 5%-WATER - 50 ML IVPB ONE (22:49)
[2023-05-01] MEDS: ACETAMINOPHEN 325 MG TABLET (FP) PO PRN (22:55)
[2023-05-01] MEDS: LATANOPROST 0.005% OPHTH SOLN 2.5ML BOTTLE OU SCH (23:05)
[2023-05-01] MEDS: TIMOLOL 0.5% OPHTHALMIC SOL 5 ML BOTTLE OS SCH (23:06)
[2023-05-01 23:20] VITALS: BMI 33.6
[2023-05-02] MEDS: TAMSULOSIN HCL 0.4 MG CAP PO SCH (07:51)
[2023-05-02] MEDS ORDERED: KETOROLAC TROMETHAMINE 30 MG/1 ML VIAL ONE (08:15)
[2023-05-02] MEDS ORDERED: ONDANSETRON 4 MG/2 ML VIAL ONE (08:15)
[2023-05-02] MEDS ORDERED: ceFAZolin SODIUM 1 GM VIAL ONE (08:15)
[2023-05-02] MEDS ORDERED: DEXAMETHASONE SOD PHOSPHATE 4 MG/1 ML VIAL ONE (08:15)
[2023-05-02] MEDS ORDERED: FENTANYL CITRATE/PF 50 MCG/ML VIAL ONE (08:30)
[2023-05-02] MEDS ORDERED: MIDAZOLAM HCL 2 MG/2 ML SINGLE DOSE VIAL ONE (08:30)
[2023-05-02] MEDS: ceFAZolin SODIUM 1 GM VIAL IVPB ONE (08:30)
[2023-05-02 08:43] LABS: BASO % 0.3 % (0-2.0); EOS % 0.3 % (0-4.5); HEMATOCRIT 39.6 % (32.4-45.2); HEMOGLOBIN 13.2 GM/dL (10.7-15.3); LYMPH % 11.5 % (8-40); MCH 26.6 pg (25.7-33.7); MCHC 33.4 g/dl (32.0-36.0); MEAN CELL VOLUME 79.8 fl (80-96); MEAN PLT VOLUME 7.6 fl (7.5-11.1); MONO % 9.9 % (3.8-10.2); PLATELET COUNT 290 10^3/uL (134-434); RBC 4.96 M/mm3 (3.60-5.2); RDW 16.7 % (11.6-15.6)
[2023-05-02] MEDS: IOHEXOL 300 MG/ML INFUS..BTL IJ ONE (08:47)
[2023-05-02] MEDS ORDERED: oxyCODONE HCL 5 MG TABLET PO PRN (08:56)
[2023-05-02] MEDS ORDERED: ACETAMINOPHEN 325 MG TABLET (FP) PO PRN (08:56)
[2023-05-02 09:07] LABS: POTASSIUM 3.8 mmol/L (3.5-5.1)
[2023-05-02 09:10] LABS: CALCIUM 8.7 mg/dL (8.5-10.1)
[2023-05-02 09:11] LABS: BLOOD UREA NITROGEN 22.3 mg/dL (7-18)
[2023-05-02 09:12] LABS: ALBUMIN 3.5 g/dl (3.4-5.0)
[2023-05-02 09:14] LABS: CREATININE 1.3 mg/dL (0.55-1.3)
[2023-05-02 09:16] LABS: BILIRUBIN,TOTAL 0.8 mg/dL (0.2-1); TOT PROT 7.2 g/dl (6.4-8.2)
[2023-05-02] MEDS ORDERED: ASPIRIN 81 MG CHEWABLE TABLETS PO SCH (10:00)
[2023-05-02] MEDS ORDERED: LOSARTAN POTASSIUM 25 MG TABLET PO SCH (10:00)
[2023-05-02] MEDS ORDERED: CHOLECALCIFEROL (VIT D3) 1,000 UNIT (25 MCG) TABLET PO SCH (10:00)
[2023-05-02] MEDS ORDERED: CEFTRIAXONE 1 GM in DEXTROSE 5%-WATER - 50 ML IVPB SCH (10:00)
[2023-05-02] MEDS: CHOLECALCIFEROL (VIT D3) 1,000 UNIT (25 MCG) TABLET PO SCH (10:34)
[2023-05-02] MEDS: ASPIRIN 81 MG CHEWABLE TABLETS PO SCH (10:34)
[2023-05-02] MEDS: CEFTRIAXONE 1 GM in DEXTROSE 5%-WATER - 50 ML IVPB SCH (10:34)
[2023-05-02] MEDS: TIMOLOL 0.5% OPHTHALMIC SOL 5 ML BOTTLE OS SCH (10:34)
[2023-05-02] MEDS: HEPARIN NA (PORCINE) 5,000 UNITS/ML 1ML VIAL SQ SCH (10:35)
[2023-05-02] MEDS: LOSARTAN POTASSIUM 25 MG TABLET PO SCH (10:35)
[2023-05-02] MEDS: LACTATED RINGERS SOLUTION 1,000 ML IV SCH (10:35)
[2023-05-02] MEDS: ATORVASTATIN CA 10 MG TABLET (FP) PO SCH (21:14)
[2023-05-02] MEDS: LATANOPROST 0.005% OPHTH SOLN 2.5ML BOTTLE OU SCH (21:15)
[2023-05-02] MEDS ORDERED: ATORVASTATIN CA 10 MG TABLET (FP) PO SCH (22:00)
[2023-05-02 22:32] VITALS: RESP 18
[2023-05-03 07:41] VITALS: TEMP 97.5
[2023-05-03 09:32] LABS: BASO % 0.4 % (0-2.0); EOS % 0.1 % (0-4.5); HEMATOCRIT 39.4 % (32.4-45.2); HEMOGLOBIN 13.2 GM/dL (10.7-15.3); LYMPH % 16.1 % (8-40); MCHC 33.5 g/dl (32.0-36.0); MEAN CELL VOLUME 80.8 fl (80-96); MEAN PLT VOLUME 7.7 fl (7.5-11.1); MONO % 8.6 % (3.8-10.2); NEUT % 74.8 % (42.8-82.8); PLATELET COUNT 279 10^3/uL (134-434); RBC 4.88 M/mm3 (3.60-5.2); RDW 16.3 % (11.6-15.6); WHITE BLOOD COUNT 9.1 K/mm3 (4.0-10.0)
[2023-05-03 09:56] LABS: POTASSIUM 3.7 mmol/L (3.5-5.1)
[2023-05-03 10:03] LABS: ALBUMIN 3.5 g/dl (3.4-5.0); BLOOD UREA NITROGEN 24.2 mg/dL (7-18); CALCIUM 8.9 mg/dL (8.5-10.1)
[2023-05-03 10:05] LABS: BILIRUBIN,TOTAL 0.7 mg/dL (0.2-1); TOT PROT 7.2 g/dl (6.4-8.2)
[2023-05-03 14:48] VITALS: BP 126/68; PULSE 82
== END 2023-05-03 18:52 | disposition home or self-care (01) | DRG 661 ==
LOC: JER 15:37 → JERBED 20:46 → J7W 21:50
PROVIDERS: ADMIT Internal Medicine; ATTEND Internal Medicine
PROC: 0T778DZ Dilation of Left Ureter with Intraluminal Device, Via Natural or Artificial Opening Endoscopic (ICD-10-PCS; principal; 2023-05-02 08:00)
DX: N13.6 Pyonephrosis (principal); I10 Essential (primary) hypertension; E78.5 Hyperlipidemia, unspecified; K21.9 Gastro-esophageal reflux disease without esophagitis
CPT/HCPCS: 36415; 74176-TC; 76000-TC-FY; 80053; 81003; 85025; 85610; 85730; 86850; 86900; 86901; 87086; 93005; 93010; 94760; 99285-25; C1758; C2617; J0131; J1644

== ENCOUNTER 2023-07-07 03:44 | Day surgery (SDC) | payer OTHER, MEDICARE ==
[2023-07-01 14:51] VITALS: BMI 32.6
[2023-07-07] MEDS ORDERED: FENTANYL CITRATE/PF 50 MCG/ML VIAL ONE (07:09)
[2023-07-07] MEDS ORDERED: MIDAZOLAM HCL 2 MG/2 ML SINGLE DOSE VIAL ONE (07:09)
[2023-07-07] MEDS ORDERED: LIDOCAINE HCL/PF 2% SDV 5ML VIAL ONE (07:09)
[2023-07-07] MEDS ORDERED: PROPOFOL 20 ML ONE (07:09)
[2023-07-07] MEDS ORDERED: DEXAMETHASONE SOD PHOSPHATE 4 MG/1 ML VIAL ONE (07:35)
[2023-07-07] MEDS ORDERED: VANCOMYCIN 1,000 MG VIAL (RESTRICTED TO ID ONLY) ONE (07:35)
[2023-07-07] MEDS: VANCOMYCIN 1,000 MG VIAL (RESTRICTED TO ID ONLY) IVPB ONE (07:45)
[2023-07-07] MEDS ORDERED: FUROSEMIDE 40 MG/4 ML INJECTABLE VIAL ONE (08:01)
[2023-07-07] MEDS ORDERED: KETOROLAC TROMETHAMINE 30 MG/1 ML VIAL ONE (08:04)
[2023-07-07] MEDS ORDERED: ONDANSETRON 4 MG/2 ML VIAL ONE (08:04)
[2023-07-07] MEDS ORDERED: oxyCODONE HCL 5 MG TABLET PO PRN ×2 (08:23→08:33)
[2023-07-07] MEDS ORDERED: DEXTROSE 5%-0.45% SALINE 1,000 ML IV SCH (08:30)
[2023-07-07] MEDS ORDERED: PROMETHAZINE HCL 25 MG/1 ML VIAL IVPB PRN (08:33)
[2023-07-07] MEDS ORDERED: ONDANSETRON 4 MG/2 ML VIAL IVPUSH PRN (08:33)
[2023-07-07] MEDS ORDERED: LACTATED RINGERS SOLUTION 1,000 ML IV SCH (08:45)
[2023-07-07] MEDS: ACETAMINOPHEN 1000 MG/100 ML BAG IVPB ONE (09:08)
[2023-07-07 11:41] VITALS: BP 130/59; PULSE 79; RESP 16; TEMP 96.8
== END 2023-07-07 12:10 | disposition home or self-care (01) ==
LOC: JASU-SURG 03:44
PROVIDERS: ATTEND Urology
PROC: 0TC18ZZ Extirpation of Matter from Left Kidney, Via Natural or Artificial Opening Endoscopic (ICD-10-PCS; principal; 2023-07-07 07:30)
PROC: 0TC78ZZ Extirpation of Matter from Left Ureter, Via Natural or Artificial Opening Endoscopic (ICD-10-PCS; 2023-07-07 07:30)
DX: N20.0 Calculus of kidney (principal); N20.1 Calculus of ureter
CPT/HCPCS: 76000-TC-FY; 94760; C1758; C2617; J0131